=== PATIENT | female | born 1950 | race Caucasian/White ===

== ENCOUNTER 2016-12-06 10:45 | Inpatient (IN) | payer MEDICARE, OTHER ==
[2016-12-06] MEDS ORDERED: SODIUM CHLORIDE 0.9% 1,000 ML IV STA (11:33)
--- NOTE | 2016-12-06 11:55 | ED ---
General Adult HPI - General Chief complaint: Back Pain/Injury Stated complaint: back pain Time Seen by Provider: 12/06/16 11:14 Source: patient, RN notes reviewed Mode of arrival: ambulatory Limitations: no limitations - History of Present Illness Initial comments: Patient 66-year-old female who presents emergency room today with a chief complaint of increased lower back pain. States symptoms started approximately 3 PM. States she is very nauseated and began experiencing some back pain. Patient states symptoms seem to be improved. She is worried that it may be related to a cyst in the right kidney. She states she was due to have ultrasound today but did cancel when she decided come to the emergency room. States pain is improved at this time. Patient admits to some discomfort epigastric. Denies any other complaints currently. Patient denies any recent fever, chills, shortness of breath, chest pain, back pain, numbness or tingling , dysuria or hematuria, constipation or diarrhea, headaches or visual changes, or any other complaints. - Related Data Home Medications Medication Instructions Recorded Confirmed Digoxin [Lanoxin] 250 mcg PO DAILY 08/04/16 12/06/16 LORazepam [Ativan] 0.5 mg PO HS PRN 08/04/16 12/06/16 PARoxetine [Paxil] 10 mg PO QAM 08/04/16 12/06/16 PARoxetine [Paxil] 40 mg PO QAM 08/04/16 12/06/16 Allergies Allergy/AdvReac Type Severity Reaction Status Date / Time No Known Allergies Allergy Verified 12/06/16 11:20 Review of Systems ROS Statement: Those systems with pertinent positive or pertinent negative responses have been documented in the HPI. ROS Other: All systems not noted in ROS Statement are negative. Past Medical History Past Medical History: GERD/Reflux, Supraventricular Tachycardia (SVT) Additional Past Medical History / Comment(s): anxiety History of Any Multi-Drug Resistant Organisms: None Reported Additional Past Surgical History / Comment(s): colonoscopy, stomach polyp removed D&C Past Psychological History: Anxiety, Depression Smoking Status: Never smoker Past Alcohol Use History: None Reported Past Drug Use History: None Reported - Past Family History Father Family Medical History: Cancer Additional Family Medical History / Comment(s): from liver cancer General Exam - General Exam Comments Initial Comments: General: The patient is awake and alert, in no distress, and does not appear acutely ill. Eye: Pupils are equal, round and reactive to light, extra-ocular movements are intact. No nystagmus. There is normal conjunctiva bilaterally. No signs of icterus. Ears, nose, mouth and throat: There are moist mucous membranes and no oral lesions. Neck: The neck is supple, there is no tenderness or JVD. Cardiovascular: There is a regular rate and rhythm. No murmur, rub or gallop is appreciated. Respiratory: Lungs are clear to auscultation, respirations are non-labored, breath sounds are equal. No wheezes, stridor, rales, or rhonchi. Gastrointestinal: Normal appearance. Normal bowel sounds. Abdomen soft on palpation. Patient does have tenderness epigastric. No rebound tenderness. No guarding. No CVA tenderness. Musculoskeletal: Normal ROM, no tenderness. Strength 5/5. Sensation intact. Pulses equal bilaterally 2+. Neurological: A&O x 3. CN II-XII intact, There are no obvious motor or sensory deficits. Coordination appears grossly intact. Speech is normal. Skin: Skin is warm and dry and no rashes or lesions are noted. Psychiatric: Cooperative, appropriate mood & affect, normal judgment. Limitations: no limitations Course Vital Signs 12/06/16 10:48 Temperature 97.7 F Pulse Rate 90 Respiratory 16 Rate Blood Pressure 145/71 O2 Sat by Pulse 98 Oximetry Medical Decision Making - Medical Decision Making Patient's labs reviewed does show an elevated amylase lipase. Patient's ultrasound does show cholelithiasis. Does show hyperechoic region within the right kidney. Results were discussed with the patient. Case discussed with attending physician Dr. Trejo who did discuss case with admitting physician Dr. Morin. GI will be consulted. - Lab Data Result diagrams: 12/06/16 11:50 12/06/16 11:50 Lab Results 12/06/16 12/06/16 12/06/16 Range/Units 11:50 11:50 11:50 WBC 7.0 (3.8-10.6) k/uL RBC 5.15 (3.80-5.40) m/uL Hgb 15.5 (11.4-16.0) gm/dL Hct 46.0 (34.0-46.0) % MCV 89.4 (80.0-100.0) fL MCH 30.0 (25.0-35.0) pg MCHC 33.6 (31.0-37.0) g/dL RDW 12.8 (11.5-15.5) % Plt Count 231 (150-450) k/uL Neutrophils % 81 % Lymphocytes % 13 % Monocytes % 5 % Eosinophils % 0 % Basophils % 0 % Neutrophils # 5.6 (1.3-7.7) k/uL Lymphocytes # 0.9 L (1.0-4.8) k/uL Monocytes # 0.4 (0-1.0) k/uL Eosinophils # 0.0 (0-0.7) k/uL Basophils # 0.0 (0-0.2) k/uL PT (9.0-12.0) sec INR (<1.1) APTT (22.0-30.0) sec Sodium 142 (137-145) mmol/L Potassium 4.4 (3.5-5.1) mmol/L Chloride 102 (98-107) mmol/L Carbon Dioxide 28 (22-30) mmol/L Anion Gap 12 mmol/L BUN 11 (7-17) mg/dL Creatinine 0.76 (0.52-1.04) mg/dL Est GFR (MDRD) Af Amer >60 (>60 ml/min/1.73 sqM) Est GFR (MDRD) Non-Af >60 (>60 ml/min/1.73 sqM) Glucose 114 H (74-99) mg/dL Calcium 10.0 (8.4-10.2) mg/dL Total Bilirubin 2.6 H (0.2-1.3) mg/dL AST 260 H (14-36) U/L ALT 105 H (9-52) U/L Alkaline Phosphatase 74 (38-126) U/L Total Creatine Kinase 45 (30-135) U/L CK-MB (CK-2) 0.5 (0.0-2.4) ng/mL CK-MB (CK-2) Rel Index 1.1 Troponin I <0.012 (0.000-0.034) ng/mL Total Protein 7.7 (6.3-8.2) g/dL Albumin 4.6 (3.5-5.0) g/dL Amylase 702 H* (30-110) U/L Lipase 93002 H (23-300) U/L Urine Color Urine Appearance (Clear) Urine pH (5.0-8.0) Ur Specific [place] (1.001-1.035) Urine Protein (Negative) Urine Glucose (UA) (Negative) Urine Ketones (Negative) Urine Blood (Negative) Urine Nitrate (Negative) Urine Bilirubin (Negative) Urine Urobilinogen (<2.0) mg/dL Ur Leukocyte Esterase (Negative) 12/06/16 12/06/16 Range/Units 11:50 13:43 WBC (3.8-10.6) k/uL RBC (3.80-5.40) m/uL Hgb (11.4-16.0) gm/dL Hct (34.0-46.0) % MCV (80.0-100.0) fL MCH (25.0-35.0) pg MCHC (31.0-37.0) g/dL RDW (11.5-15.5) % Plt Count (150-450) k/uL Neutrophils % % Lymphocytes % % Monocytes % % Eosinophils % % Basophils % % Neutrophils # (1.3-7.7) k/uL Lymphocytes # (1.0-4.8) k/uL Monocytes # (0-1.0) k/uL Eosinophils # (0-0.7) k/uL Basophils # (0-0.2) k/uL PT 10.6 (9.0-12.0) sec INR 1.0 (<1.1) APTT 22.0 (22.0-30.0) sec Sodium (137-145) mmol/L Potassium (3.5-5.1) mmol/L Chloride (98-107) mmol/L Carbon Dioxide (22-30) mmol/L Anion Gap mmol/L BUN (7-17) mg/dL Creatinine (0.52-1.04) mg/dL Est GFR (MDRD) Af Amer (>60 ml/min/1.73 sqM) Est GFR (MDRD) Non-Af (>60 ml/min/1.73 sqM) Glucose (74-99) mg/dL Calcium (8.4-10.2) mg/dL Total Bilirubin (0.2-1.3) mg/dL AST (14-36) U/L ALT (9-52) U/L Alkaline Phosphatase (38-126) U/L Total Creatine Kinase (30-135) U/L CK-MB (CK-2) (0.0-2.4) ng/mL CK-MB (CK-2) Rel Index Troponin I (0.000-0.034) ng/mL Total Protein (6.3-8.2) g/dL Albumin (3.5-5.0) g/dL Amylase (30-110) U/L Lipase (23-300) U/L Urine Color Yellow Urine Appearance Clear (Clear) Urine pH 7.5 (5.0-8.0) Ur Specific [place] 1.015 (1.001-1.035) Urine Protein Trace H (Negative) Urine Glucose (UA) Negative (Negative) Urine Ketones Negative (Negative) Urine Blood Negative (Negative) Urine Nitrate Negative (Negative) Urine Bilirubin 1+ H (Negative) Urine Urobilinogen 4.0 (<2.0) mg/dL Ur Leukocyte Esterase Negative (Negative) Disposition Clinical Impression: Acute pancreatitis Disposition: ADMITTED IP TO THIS HOSP Condition: Good Time of Disposition: 14:08
[2016-12-06 12:08] LABS: Basophils % (A) 0 %; CH 31.1; Eosinophils % (A) 0 %; HDW 2.75; HGB 15.5 gm/dL (11.4-16.0); Luc # (Auto) 0.07; Luc % (Auto) 1; Lymphocytes # (A) 0.9 k/uL (1.0-4.8); Lymphocytes % (A) 13 %; MCHC 33.6 g/dL (31.0-37.0); MCV 89.4 fL (80.0-100.0); Mean Platelet Volume 6.5; Monocytes # (A) 0.4 k/uL (0-1.0); Monocytes % (A) 5 %; Neutrophils # (A) 5.6 k/uL (1.3-7.7); Neutrophils % (A) 81 %; RBC 5.15 m/uL (3.80-5.40); RDW 12.8 % (11.5-15.5); WBC (Perox) 6.95
[2016-12-06 12:18] LABS: ALT 105 U/L (9-52); AST 260 U/L (14-36); Alkaline Phosphatase 74 U/L (38-126); Anion Gap 12 mmol/L; Blood Urea Nitrogen 11 mg/dL (7-17); Carbon Dioxide 28 mmol/L (22-30); Chloride 102 mmol/L (98-107); Glucose 114 mg/dL (74-99); Non-African American GFR(MDRD) >60 (>60 ml/min/1.73 sqM); Potassium 4.4 mmol/L (3.5-5.1); Sodium 142 mmol/L (137-145); Total Bilirubin 2.6 mg/dL (0.2-1.3); Total Protein 7.7 g/dL (6.3-8.2)
[2016-12-06 12:31] LABS: Amylase 702 U/L (30-110)
[2016-12-06 12:36] LABS: Creatine Kinase 45 U/L (30-135)
[2016-12-06 12:42] LABS: Prothrombin Time 10.6 sec (9.0-12.0)
[2016-12-06 12:48] LABS: Creatine Kinase MB 0.5 ng/mL (0.0-2.4); Troponin I <0.012 ng/mL (0.000-0.034)
--- NOTE | 2016-12-06 13:47 | US ---
EXAMINATION TYPE: US abd limited kidneys/bladder DATE OF EXAM: 12/06/2016 1:03 PM COMPARISON: CT abdomen and pelvis 08/10/2016 CLINICAL HISTORY: Pain. Back pain, nausea EXAM MEASUREMENTS: Liver Length: 14.9 cm Gallbladder Wall: 0.7 cm CBD: 0.6 cm Right Kidney: 10.8 x 5.2 x 4.3 cm Left Kidney: 11.5 x 4.5 x 4.8 cm TECHNOLOGIST IMPRESSION: Pancreas: duct = 0.3cm, visualized portions appear heterogeneous, tail obscured by overlying bowel c ontent Liver: heterogeneous Gallbladder: multiple gallstones, thickened edematous wall CBD: upper limits of normal Right Kidney: hyperechoic area mid = 0.7 x 0.8 x 0.7cm . This may have been faintly visualized on the prior CT 2015. A repeat CT study without and with contrast may be useful for better delineation. Left Kidney: no evidence of hydronephrosis or mass Bladder: appears wnl Bilateral Jets Seen yes IMPRESSION: 1. Cholelithiasis. 2. Hyperechoic region within the right kidney. Consider angiomyolipoma. CT abdomen without and then w ith contrast recommended for additional evaluation.
[2016-12-06 13:51] LABS: Appearance,Urine Clear (Clear); Bilirubin,Urine 1+ (Negative); Glucose,Urine (UA) Negative (Negative); Ketones,Urine Negative (Negative); Leukocyte Esterase,Urine Negative (Negative); Nitrite,Urine Negative (Negative); PH, Urine 7.5 (5.0-8.0); Protein,Urine Trace (Negative); Specific Gravity,Urine 1.015 (1.001-1.035); UA Billing (MACRO vs. MICRO) CHEM
[2016-12-06] MEDS ORDERED: HYDROmorphone 1 MG/ML 1 ML SYRINGE IV PRN (14:08)
[2016-12-06] MEDS ORDERED: NALOXONE 0.4 MG/ML 1 ML VIAL IV PRN (14:08)
[2016-12-06] MEDS ORDERED: ONDANSETRON 4 MG/2 ML VIAL IVP PRN (14:08)
[2016-12-06] MEDS: LORazepam 2 MG/ML SYRINGE IV PRN (16:30)
[2016-12-06 22:12] VITALS: PULSE 57; RESP 16
[2016-12-07] MEDS: LORazepam 2 MG/ML SYRINGE IV PRN (04:42)
[2016-12-07 07:50] VITALS: BP 108/48; TEMP 98.4
[2016-12-07 08:32] LABS: Basophils % (A) 0 %; CH 30.6; CHCM 33.3; Eosinophils # (A) 0.1 k/uL (0-0.7); Eosinophils % (A) 2 %; HDW 2.66; HGB 13.2 gm/dL (11.4-16.0); Luc % (Auto) 2; Lymphocytes # (A) 1.7 k/uL (1.0-4.8); Lymphocytes % (A) 36 %; MCH 29.7 pg (25.0-35.0); MCHC 32.1 g/dL (31.0-37.0); MCV 92.5 fL (80.0-100.0); Monocytes # (A) 0.3 k/uL (0-1.0); Monocytes % (A) 6 %; Neutrophils # (A) 2.6 k/uL (1.3-7.7); Neutrophils % (A) 54 %; RBC 4.43 m/uL (3.80-5.40); RDW 12.8 % (11.5-15.5); WBC 4.8 k/uL (3.8-10.6); WBC (Perox) 4.88
[2016-12-07 08:47] LABS: ALT 198 U/L (9-52); AST 200 U/L (14-36); Alkaline Phosphatase 84 U/L (38-126); Amylase 103 U/L (30-110); Anion Gap 9 mmol/L; Blood Urea Nitrogen 9 mg/dL (7-17); Carbon Dioxide 23 mmol/L (22-30); Chloride 110 mmol/L (98-107); Glucose 90 mg/dL (74-99); Non-African American GFR(MDRD) >60 (>60 ml/min/1.73 sqM); Sodium 142 mmol/L (137-145); Total Bilirubin 1.4 mg/dL (0.2-1.3); Total Protein 6.1 g/dL (6.3-8.2)
[2016-12-07] MEDS ORDERED: DIGOXIN 250 MCG TAB PO SCH ×2 (09:00→12:00)
[2016-12-07] MEDS ORDERED: PARoxetine 10 MG TAB PO SCH ×3 (09:00→12:00)
[2016-12-07] MEDS ORDERED: PARoxetine 20 MG TAB PO SCH (09:00)
--- NOTE | 2016-12-07 09:43 | P.CONS ---
History of Present Illness - Reason for Consult Consult date: 12/07/16 Pancreatitis Requesting physician: Silvano Morin - History of Present Illness 66-year-old female patient Dr. Chávez with a past medical history cholelithiasis, SVT, anxiety, depression, GERD, and nephrolithiasis. Presents with acute midepigastric right upper quadrant abdominal pain that started yesterday morning. She has similar type of pain back in July and was hospitalized at that time with symptomatically gallstones. No evidence of pancreatitis at that time. Additionally on this admission pancreatic enzymes were elevated consistent with gallstone pancreatitis. Admission white count 7. Hemoglobin 15.5. Total bilirubin 2.6. AST 260. ALT 105. Alkaline phosphate 74. Lipase 13,474. Amylase 702. Today total bilirubin has improved to 1.4. AST 200. ALT 198. Alkaline phosphatase 84. Lipase 354. Amylase 103. She has been afebrile. No changes in the color of her stool urine was slightly darker in color. Pain is improved and presently resting comfortably. No history of liver disorders or alcoholism. No changes in medications. Review of Systems Constitutional: Denies fever, chills, sweats, weight gain, or loss. HEENT: Negative for migraines, blurred vision or loss, earaches, drainage, tinnitus, oral mucosal lesions, dysphagia, or odynophagia. CARDIAC: SVT. RESPIRATORY: Negative for shortness of breath, hemoptysis, cough, or sputum production. GI: See HPI for pertinent findings. : Negative for hematuria, urgency, frequency, polyuria, or dysuria. GYNc: Denies possibility of . Negative vaginal discharge. MUSCULOSKELETAL: Negative for muscle aches, swelling, arthritis, and arthralgias. NEUROLOGIC: Negative for stroke or TIA. ENDOCRINE: Negative for thyroid problems. Nephrology: Nephrolithiasis. SKIN: Negative for rash or itching. PSYCHIATRIC: depression and anxiety All systems: negative (See HPI) Past Medical History Past Medical History: GERD/Reflux, Supraventricular Tachycardia (SVT) Additional Past Medical History / Comment(s): anxiety, svt,gallstones, past gerd , small hiatal hernia, "told 30 years ago i had a fatty liver", kidney stone 25 years ago,, psoriases,, broken sleep at night stated gets up 5-8 times per night to urinate", "lt ball of foot and toes numb and at times gets discolored" History of Any Multi-Drug Resistant Organisms: None Reported Additional Past Surgical History / Comment(s): colonoscopy,egd/ stomach polyp removed was benign, D&C Past Anesthesia/Blood Transfusion Reactions: No Reported Reaction Past Psychological History: Anxiety, Depression Smoking Status: Never smoker Past Alcohol Use History: None Reported Past Drug Use History: None Reported - Past Family History Father Family Medical History: Cancer Additional Family Medical History / Comment(s): from liver cancer Medications and Allergies Home Medications Medication Instructions Recorded Confirmed Type Digoxin [Lanoxin] 250 mcg PO DAILY 08/04/16 12/06/16 History LORazepam [Ativan] 0.5 mg PO HS PRN 08/04/16 12/06/16 History PARoxetine [Paxil] 10 mg PO QAM 08/04/16 12/06/16 History PARoxetine [Paxil] 40 mg PO QAM 08/04/16 12/06/16 History Allergies Allergy/AdvReac Type Severity Reaction Status Date / Time No Known Allergies Allergy Verified 12/06/16 11:20 Physical Exam Vitals: Vital Signs Temp Pulse Pulse Resp BP BP Pulse Ox 12/07/16 08:00 16 12/07/16 07:00 98.4 F 57 L 16 108/48 97 12/06/16 20:25 98.7 F 57 L 16 111/54 96 12/06/16 16:36 98.3 F 68 18 139/64 99 12/06/16 16:00 68 18 12/06/16 14:48 98.2 F 71 16 126/58 98 Intake and Output 12/06/16 12/07/16 12/07/16 22:59 06:59 14:59 Intake Total 350 800 Balance 350 800 Intake: Intake, IV Titration 350 800 Amount Sodium Chloride 0.9% 1, 350 800 000 ml @ 100 mls/hr IV . Q10H STA Rx#:[id number] Other: Voiding Method Toilet Toilet # Voids 1 Weight 74.389 kg General appearance: The patient is alert, oriented, in no acute distress. HET: Head is normocephalic and atraumatic. Pupils are equal and reactive. Oropharynx is clear without lesions. Neck: Supple without lymphadenopathy. Trachea midline. Heart: S1 S2. Regular rate and rhythm. Lungs: No crackles or wheezes are heard. Abdomen: Soft, nontender, nondistended with bowel sounds. No peritoneal signs. No palpable organomegaly or masses. Extremities: Normal skin color and turgor. No cyanosis, rash, ulceration, clubbing, or edema. Radial and pedal pulses are 2/4 bilaterally. Neurological: No focal deficits. Strength and sensation are grossly intact. Results CBC & Chem 7: 12/07/16 07:20 12/07/16 07:20 Labs: Abnormal Lab Results - Last 24 Hours (Table) 12/07/16 Range/Units 07:20 Chloride 110 H (98-107) mmol/L Total Bilirubin 1.4 H (0.2-1.3) mg/dL AST 200 H (14-36) U/L ALT 198 H (9-52) U/L Total Protein 6.1 L (6.3-8.2) g/dL Lipase 354 H (23-300) U/L US - abdomen: report reviewed (Reviewed by Dr. Chamorro) Assessment and Plan (1) Acute gallstone pancreatitis Narrative/Plan: 66-year-old female presents with acute midepigastric right upper quadrant abdominal pain with cholelithiasis suspect passage of choledocholithiasis. Elevated pancreatic and liver enzymes improving consistent with gallstone pancreatitis. Status: Acute Plan: 1. ERCP not recommended at this time considering liver chemistries are improving. Patient most likely passed gallstone. 2. Gen. surgical consultation. 3. Continue supportive measures. 4. Will follow with you. Thank you for this kind referral and the opportunity to participate in the care of your patient. This consultation was discussed with Dr. Chamorro. The impression and plan of care have been directed as dictated.
--- NOTE | 2016-12-07 15:58 | P.CON ---
Consult Note - . Consult date: 12/07/16 Assessment/Plan:: Thank you very much for asking us to see Ms. Corral.. Admitted late last night with sudden onset of severe mid epigastric abdominal pain. She presented to the emergency room. Did have some nausea. Workup revealed evidence of gallstone pancreatitis with elevated lipase to over 10,000 and amylase and bilirubin as well. For further management. Had a similar episode in July of 2016. She is known to have had gallstones. AGAIN DID REVEAL MULTIPLE GALLSTONES. HER LIVER ENZYMES AND AMYLASE AND LIPASE HAVE RAPIDLY DIFFICULT DECLINE INDICATING PROBABLY A PASSED STONE. MISSION SHE FEELS GREAT. HAS ABSOLUTELY NO PAIN NOW. NO NAUSEA OR VOMITING. SHE IS TOLERATING BY MOUTH FLUIDS. PAST HISTORY POSITIVE FOR THE ARRHYTHMIA. THE SVT.medications as listed. T ANXIETY DISORDER COLON POLYP BY COLONOSCOPY SOME REFLUX DISEASE. No previous abdominal surgery. Social history patient is . Denies tobacco or ethanol usage. Systems review as above. No chest pain or shortness of breath. No EXHIBIT CARPENTER problems. No change in her bowels or blood in the stool. No urinary symptoms although has a past history of kidney stones. On examination patient is awake alert in no distress resting comfortably. Anxiously wants to go home. Weighs about 74.4 kg BMI 25.7. Vitals are normal. She is anicteric. Hydration is good. Head and neck otherwise normal. Heart regular rhythm. Lungs are clear. Abdomen is quite soft with the no tenderness no pain no guarding or rebound or mass or organomegaly noted. No hernias. Extremities normal with full motion. Does have good pedal pulses. EXHIBIT CARPENTER grossly intact. Ultrasound and blood work as above. Donny impression resolving gallstone pancreatitis. Recommendation progressively advance her diet. Would recommend a laparoscopic cholecystectomy possible open on an elective basis. Patient understands and agrees.
--- NOTE | 2016-12-07 17:34 | HP ---
DATE OF ADMISSION: 12/06/2016 PRESENTING COMPLAINT: Abdominal pain. HISTORY OF PRESENTING COMPLAINT: This is a 66-year-old patient who was in the bathroom earlier and I could not see the patient. I came back to see the patient. Patient follows with Dr. Chávez. Chronic stable medical conditions include GERD, kidney stones, anxiety, depression. Patient presented with 2 days of increasing nausea, abdominal epigastric pain with back pain. Denies any fever. Bowel movements are regular. No urinary symptoms. REVIEW OF SYSTEMS: CONSTITUTIONAL: Tired. HEENT: None. RESPIRATORY: None. CARDIOVASCULAR: None. GASTROINTESTINAL: As above. GENITOURINARY: None. MUSCULOSKELETAL: None. DERMATOLOGIC: None. HEMATOLOGIC: None. LYMPHATICS: None. PSYCHIATRY: Anxious. NEUROLOGICAL: None. PAST MEDICAL HISTORY: Gastroesophageal reflux disease, supraventricular tachycardia, kidney stones, anxiety, depression. PAST SURGICAL HISTORY: Colonoscopy, EGD, stomach polyp removed. SOCIAL HISTORY: History of anxiety, depression. . No smoking or alcohol. FAMILY HISTORY: Liver cancer. HOME MEDICATIONS: 1. Paxil 50 mg a day. 2. Ativan 0.5 mg q.h.s. p.r.n. 3. Digoxin 250 mcg a day. ALLERGIES: None. On examination vital signs on presentation: Temperature 97.7, pulse 90, respiration 16, blood pressure 140/71, pulse ox 98% on room air. GENERAL APPEARANCE: Average built, sitting up, not in distress. EYES: Pupils equal. Conjunctivae normal. HEENT: Oral cavity normal. NECK: JVD not raised. Mass not palpable. RESPIRATORY: Effort normal. Lungs are clear. CARDIOVASCULAR: First and second sounds normal. No edema. ABDOMEN: Soft, nontender. Liver and spleen not palpable. LYMPHATIC: No lymph nodes palpable in the neck or axillae. PSYCHIATRY: Alert and oriented x3. Mood and effect, anxious appearing. NEUROLOGICAL: Pupils are equal. Cranial nerves grossly intact. Power and sensation grossly intact. INVESTIGATIONS: White count 7, hemoglobin 15.5. Potassium 4.4. BUN and creatinine are normal. AST 260, ALT 105, bilirubin 2.6, amylase 702, lipase 13,424. Abdominal ultrasound shows multiple gallstones. ASSESSMENT: 1. Acute gallstone pancreatitis. 2. Multiple gallstones. 3. Gastroesophageal reflux disease. 4. Anxiety, not otherwise specified. 5. Kidney stones, asymptomatic. PLAN: Consultation was done to GI and General Surgery. The patient began on clear liquids. Abdominal pain is getting better. Will see how she does. Patient is very keen to go home. Patient will definitely need surgery down the road.
--- NOTE | 2016-12-08 11:39 | DS ---
DATE OF ADMISSION: 12/06/2016 DATE OF DISCHARGE: 12/07/2016 FINAL DIAGNOSES: 1. Acute gallstone pancreatitis, present on admission. 2. Multiple gallstones. 3. Gastroesophageal reflux disease. 4. Anxiety, not otherwise specified. 5. Kidney stones, asymptomatic. HOSPITAL COURSE: This patient presented with abdominal pain and acute pancreatitis from gallstones. The patient's symptoms greatly improved by the time of discharge. ABDOMEN: Soft, nontender. Tolerating a diet. Pancreatic numbers have come down. Patient will have surgery as an outpatient. CONSULTATION: Dr. April Chamorro form GI; Dr. Botello from general surgery. DISCHARGE MEDICATIONS: 1. Digoxin 250 mcg p.o. daily. 2. Ativan 0.5 p.o. q.h.s. p.r.n. 3. Paxil 50 mg a day. Follow up with Dr. Chávez in one week. Follow up with Dr. Botello in one week. DIET: Soft, bland.
== END 2016-12-07 16:20 | disposition home or self-care (01) | DRG 439 ==
LOC: EC 10:45 → 5MS5E 14:16
PROVIDERS: ADMIT Hospitalist; ATTEND Hospitalist
DX: K85.10 Biliary acute pancreatitis without necrosis or infection (principal); I47.1 Supraventricular tachycardia; F32.9 Major depressive disorder, single episode, unspecified; F41.9 Anxiety disorder, unspecified; K21.9 Gastro-esophageal reflux disease without esophagitis; K44.9 Diaphragmatic hernia without obstruction or gangrene; R74.8 Abnormal levels of other serum enzymes; R20.0 Anesthesia of skin; K80.20 Calculus of gallbladder without cholecystitis without obstruction; R11.0 Nausea; R93.421 Abnormal radiologic findings on diagnostic imaging of right kidney; G47.9 Sleep disorder, unspecified; L40.9 Psoriasis, unspecified; Z87.19 Personal history of other diseases of the digestive system; Z87.442 Personal history of urinary calculi; Z79.899 Other long term (current) drug therapy; Z80.0 Family history of malignant neoplasm of digestive organs; Z86.010 Personal history of colon polyps
CPT/HCPCS: 36415; 76705; 76770; 80053; 81003; 82150; 82550; 82553; 83690; 84484; 85025; 85610; 85730; 93005; 96361; 96374; 99285

== ENCOUNTER → 2016-12-26 | Outpatient (CLI) | payer MEDICARE, OTHER ==
[2016-12-26 14:55] LABS: ALT 29 U/L (9-52); AST 25 U/L (14-36); Alkaline Phosphatase 75 U/L (38-126); Anion Gap 12 mmol/L; Blood Urea Nitrogen 9 mg/dL (7-17); Calcium 10.3 mg/dL (8.4-10.2); Carbon Dioxide 28 mmol/L (22-30); Chloride 100 mmol/L (98-107); Glucose 104 mg/dL (74-99); Non-African American GFR(MDRD) 58 (>60 ml/min/1.73 sqM); Potassium 4.2 mmol/L (3.5-5.1); Sodium 140 mmol/L (137-145); Total Protein 7.7 g/dL (6.3-8.2)
[2016-12-26 15:04] LABS: Basophils # (A) 0.1 k/uL (0-0.2); Basophils % (A) 1 %; CHCM 34.4; Eosinophils # (A) 0.1 k/uL (0-0.7); Eosinophils % (A) 1 %; HCT 43.6 % (34.0-46.0); HDW 2.83; Luc # (Auto) 0.14; Luc % (Auto) 2; Lymphocytes # (A) 1.9 k/uL (1.0-4.8); Lymphocytes % (A) 32 %; MCH 31.2 pg (25.0-35.0); MCHC 34.4 g/dL (31.0-37.0); MCV 90.7 fL (80.0-100.0); Mean Platelet Volume 8.5; Monocytes # (A) 0.4 k/uL (0-1.0); Monocytes % (A) 7 %; Neutrophils # (A) 3.4 k/uL (1.3-7.7); Neutrophils % (A) 57 %; RDW 13.1 % (11.5-15.5); WBC 5.9 k/uL (3.8-10.6); WBC (Perox) 6.26
[2016-12-26 15:19] LABS: INR 1.1 (<1.1); Partial Thromboplastin Time 23.8 sec (22.0-30.0); Prothrombin Time 11.4 sec (9.0-12.0)
== END ==
LOC: LABWHC1 14:28
PROVIDERS: ATTEND Surgery
DX: K81.0 Acute cholecystitis (principal)
CPT/HCPCS: 36415; 80053; 83690; 85025; 85610; 85730

== ENCOUNTER 2017-01-02 08:29 | Day surgery (SDC) | payer MEDICARE, OTHER ==
--- NOTE | 2016-12-31 08:36 | HP ---
DATE OF ADMISSION: CHIEF COMPLAINT: Gallstone pancreatitis. HISTORY OF PRESENT ILLNESS: Patient is a 66-year-old female who has had numerous recent episodes of choledocholithiasis with the last episode resulting in gallstone pancreatitis. The patient is extremely anxious and during her last few admissions, it was suggested that she have her cholecystectomy done during that hospitalization; however, the patient could not get the nerve up to do it. Currently, she feels well. No current pain. No change in the color of her skin, urine or stool recently. Repeat lab work done on December 26 showed normal liver enzymes, normal coags. Her first episode was back in 2014. She had an ultrasound showing multiple gallstones with a thickened gallbladder wall. PAST MEDICAL HISTORY: Anxiety, SVT. Past surgical history is EGD and colonoscopy. MEDICATIONS: 1. Paxil. 2. Ativan. 3. Digoxin. ALLERGIES: None. PHYSICAL EXAM: GENERAL: Well-developed, well-nourished female in no distress. HEENT is normocephalic. Sclerae is nonicteric. CHEST: No deformities. ABDOMEN: Soft, nontender, nondistended. IMPRESSION: A 66-year-old female with gallstone pancreatitis. PLAN: Will proceed with laparoscopic cholecystectomy on 01/02. The risks of bleeding, infection, biloma formation, common bile duct injury, retained CBD stone, trocar-related injury and conversion to an open procedure. The patient understands and wishes to proceed.
[2017-01-01 12:21] VITALS: BMI 23.9
[~2017-01-02 08:29] MED LIST: DEXAMETHASONE SOD PHOSPHATE 10 MG/ML 1 ML VIAL IV ONE; HEPARIN SODIUM,PORCINE 5,000 UNIT/ML 1 ML VIAL SQ ONE; HYDROmorphone 1 MG/ML 1 ML SYRINGE IVP PRN; LACTATED RINGERS 1,000 ML IV SCH; LIDOCAINE 1% 20 ML VIAL (10MG/ML) FOR IV START INTRADERMA PRN; ONDANSETRON 4 MG/2 ML VIAL IVP ONE; ceFAZolin 2 GM in SODIUM CHLORIDE 0.9% 100 ML IVPB ONE
[2017-01-02] MEDS ORDERED: LIDOCAINE 1% 20 ML VIAL (10MG/ML) FOR IV START INTRADERMA ONE (09:46)
[2017-01-02] MEDS ORDERED: MIDAZOLAM 2 MG/2 ML VIAL IV ONE (09:53)
[2017-01-02] MEDS ORDERED: PROPOFOL 10 MG/ML 20 ML VIAL IV ONE (10:16)
[2017-01-02] MEDS ORDERED: SUCCINYLCHOLINE CHLORIDE 100 MG/5 ML SYR IV ONE (10:16)
[2017-01-02] MEDS ORDERED: GLYCOPYRROLATE 0.2 MG/ML 2 ML VIAL ONE (10:16)
[2017-01-02] MEDS ORDERED: ROCURONIUM BROMIDE 10 MG/ML 10 ML VIAL IV ONE (10:16)
[2017-01-02] MEDS ORDERED: NEOSTIGMINE 1 MG/ML 10 ML VIAL ONE (10:16)
[2017-01-02] MEDS ORDERED: fentaNYL (PF) 50 MCG/ML 2 ML AMP ONE (10:16)
[2017-01-02] MEDS ORDERED: MIDAZOLAM 2 MG/2 ML VIAL ONE (10:16)
[2017-01-02] MEDS ORDERED: LIDOCAINE 1% INJ 10MG/ML (20 ML MDV) ONE (10:16)
[2017-01-02] MEDS ORDERED: BUPIVACAIN-EPI 0.25%-1:200,000 30 ML VIAL SQ ONE (10:37)
[2017-01-02] MEDS ORDERED: traMADol 50 MG TAB PO PRN (11:13)
[2017-01-02] MEDS ORDERED: NALOXONE 0.4 MG/ML 1 ML VIAL IV PRN (11:13)
--- NOTE | 2017-01-02 11:14 | P.PCN ---
Date of Procedure: 01/02/17 Procedure(s) Performed: PREOPERATIVE DIAGNOSIS: Chronic cholecystitis, gallstone pancreatitis POSTOPERATIVE DIAGNOSIS: Same PROCEDURE: Laparoscopic cholecystectomy SURGEON: Alicia EBL: Minimal see anesthesia record ANESTHESIA: Gen. COMPLICATIONS: None OPERATIVE PROCEDURE: The patient was brought and placed on the operating room table in the supine position. The patient was placed under general anesthesia at that time. The abdomen was prepped and draped in the usual sterile fashion. A small vertical infraumbilical incision was made. The fascia was grasped with the Avery forceps. The fascia was retracted anteriorly. The Veress needle was advanced into the peritoneal cavity. The saline drop test was normal. Insufflation took place up to 15 mmHg. A 5 mm optical trocar was advanced and the peritoneal cavity. 2 additional 5 mm trochars were placed in the right upper quadrant under direct visualization. A 10 mm trocar was advanced into the epigastric incision site. The gallbladder was retracted superiorly and laterally. The peritoneum overlying the infundibulum was bluntly dissected. The patient's cystic duct was visualized. The junction between the cystic duct common and hepatic duct was identified. The cystic duct was then divided after placement of 3 10 mm clips on the patient's side and one on the specimen side. The cystic artery was identified and clipped as well. A small vessel was seen along the gallbladder fossa and clipped as well. The gallbladder was then removed from the liver bed using electrocautery. The gallbladder was then removed from the epigastric trocar site with an Endo Catch bag. The gallbladder fossa was irrigated with saline. There was no evidence of any bleeding or biliary drainage seen. The trochars were then removed. The fascia at the 10 millimeter site was closed using a figure-of- eight 0 Vicryl stitch. The skin at all 4 sites was closed using a 4-0 Monocryl stitch. At the end of this procedure the sponge and needle counts were correct. DISPOSITION: Stable to the recovery room
[2017-01-02 11:33] VITALS: TEMP 97.2
[2017-01-02] MEDS ORDERED: LACTATED RINGERS 1,000 ML IV ONE (11:44)
[2017-01-02 13:14] VITALS: BP 101/60; PULSE 66; RESP 18
== END 2017-01-02 13:46 | disposition home or self-care (01) ==
LOC: OR 08:29
PROVIDERS: ATTEND Surgery
DX: K80.10 Calculus of gallbladder with chronic cholecystitis without obstruction (principal); K85.10 Biliary acute pancreatitis without necrosis or infection; F41.9 Anxiety disorder, unspecified; F32.9 Major depressive disorder, single episode, unspecified; I47.1 Supraventricular tachycardia; Z79.899 Other long term (current) drug therapy
CPT/HCPCS: 88304; 47562; J2250; J1100; J2710; J0690; J2405; J2001; J3010; J0330; J2704

== ENCOUNTER → 2017-05-03 | Outpatient (CLI) | payer MEDICARE, OTHER ==
--- NOTE | 2017-05-03 15:13 | US ---
EXAMINATION TYPE: US abdomen comp/pelvis limited DATE OF EXAM: 05/03/2017 COMPARISON: 12/06/2016 CLINICAL HISTORY: 67-year-old female N28.1 CYST OF KIDNEYS. Follow up renal lesion. Microscopic hemat uria. GB removed December 2016. TECHNIQUE: Multiple sonographic images of the abdomen and bladder are obtained. FINDINGS: Liver Length: 13.6 cm CBD: 0.5 cm CHD: 0.4 cm Spleen: 10.8 cm Right Kidney: 10.2 x 4.7 x 5.1 cm Left Kidney: 11.2 x 4.5 x 5.1 cm Pancreas: Limited visualization of the pancreatic head and tail secondary to shadowing from bowel gas . Visualized body slightly heterogeneous but probably within normal limits. Liver: Slight increased echogenicity. No focal lesion seen. Gallbladder: Surgically absent CBD: wnl CHD: wnl Spleen: wnl Right Kidney: echogenic nonvascular lesion in mid cortex = 0.9 x 0.7 x 0.6 cm. Previously measured 8 x 7 x 7 mm. No hydronephrosis. Left Kidney: Dromedary hump seen. No hydronephrosis. Upper IVC: wnl Abd Aorta: No AAA visualized Bladder: Borderline wall thickening of the bladder at 4 mm. Bilateral Jets Seen IMPRESSION: 1. Possible mild hepatic steatosis. 2. Status post cholecystectomy in the interval. 3. A 9 x 7 mm echogenic lesion mid pole right kidney versus 8 x 7 mm on 12/06/2016. Additional 6-7 mon th follow-up recommended. AML is possible. Continued stability would make more aggressive etiologies unlikely. 4. Slight bladder wall thickening. Correlate to exclude cystitis.
--- NOTE | 2017-05-03 15:15 | US ---
EXAMINATION TYPE: US pelvis complete transvag DATE OF EXAM: 05/03/2017 COMPARISON: None. CLINICAL HISTORY: 67-year-old female N28.1 CYST OF KIDNEY. Microscopic hematuria TECHNIQUE: Transvaginal (TV) and Transabdominal (TA) FINDINGS: Date of LMP: Menopause, Uterus: Anteverted measuring 5.8 x 3.8 x 1.9 cm. Cervical nabothian cyst is noted. The cervix appear s somewhat prominent in comparison to the atrophic uterus. Endometrial Stripe: 1 mm, very then appropriate for a postmenopausal female. Neither ovary could be visualized. Bilateral Adnexa: Peristalsing bowel Posterior cul-de-sac: no free fluid IMPRESSION: 1. Somewhat prominent appearance to the cervix in comparison to the atrophic uterus. No discrete mass is seen. Consider physical exam and/or Pap smear as a precautionary measure. 2. Neither ovary could be visualized.
== END | disposition home or self-care (01) ==
LOC: RADUSWWP 13:27
PROVIDERS: ATTEND Family Medicine
DX: N28.89 Other specified disorders of kidney and ureter (principal); N32.89 Other specified disorders of bladder; Z90.49 Acquired absence of other specified parts of digestive tract
CPT/HCPCS: 76700; 76830; 76856; 76857

== ENCOUNTER 2017-05-22 02:13 | Inpatient (IN) | payer MEDICARE, OTHER ==
[2017-05-22] MEDS ORDERED: ASPIRIN 81 MG CHEW PO STA (02:29)
[2017-05-22] MEDS ORDERED: ADENOSINE 3 MG/ML 2 ML VIAL IVP STA (02:29)
[2017-05-22] MEDS ORDERED: SODIUM CHLORIDE 0.9% 1,000 ML IV STA (02:29)
[2017-05-22 02:47] LABS: Basophils # (A) 0.1 k/uL (0-0.2); Basophils % (A) 1 %; CH 31.9; CHCM 34.8; Eosinophils # (A) 0.1 k/uL (0-0.7); Eosinophils % (A) 1 %; HCT 48.5 % (34.0-46.0); HDW 2.65; Luc # (Auto) 0.19; Luc % (Auto) 2; Lymphocytes # (A) 3.8 k/uL (1.0-4.8); Lymphocytes % (A) 32 %; MCH 30.5 pg (25.0-35.0); MCHC 33.1 g/dL (31.0-37.0); MCV 92.2 fL (80.0-100.0); Mean Platelet Volume 7.9; Monocytes # (A) 0.5 k/uL (0-1.0); Monocytes % (A) 4 %; Neutrophils # (A) 7.1 k/uL (1.3-7.7); Neutrophils % (A) 61 %; RBC 5.26 m/uL (3.80-5.40); RDW 14.3 % (11.5-15.5); WBC 11.6 k/uL (3.8-10.6); WBC (Perox) 11.67
[2017-05-22 02:56] LABS: ALT 34 U/L (9-52); AST 27 U/L (14-36); Alkaline Phosphatase 69 U/L (38-126); Anion Gap 16 mmol/L; Blood Urea Nitrogen 16 mg/dL (7-17); Calcium 9.9 mg/dL (8.4-10.2); Carbon Dioxide 22 mmol/L (22-30); Chloride 101 mmol/L (98-107); Glucose 156 mg/dL (74-99); Magnesium 2.2 mg/dL (1.6-2.3); Non-African American GFR(MDRD) >60 (>60 ml/min/1.73 sqM); Potassium 4.3 mmol/L (3.5-5.1); Sodium 139 mmol/L (137-145); Total Bilirubin 0.7 mg/dL (0.2-1.3); Total Protein 7.3 g/dL (6.3-8.2)
[2017-05-22 02:57] LABS: INR 1.1 (<1.2); Prothrombin Time 11.2 sec (9.0-12.0)
[2017-05-22 03:23] LABS: Creatine Kinase MB 1.4 ng/mL (0.0-2.4)
[2017-05-22 03:33] LABS: Troponin I 0.064 ng/mL (0.000-0.034)
--- NOTE | 2017-05-22 03:35 | XR ---
EXAM: XR Chest, 1 View CLINICAL HISTORY: dysrhythmia TECHNIQUE: Frontal view of the chest. COMPARISON: August 04, 2016. FINDINGS: Lungs: Unremarkable. No consolidation. Pleural space: Unremarkable. No pneumothorax. Heart: Unremarkable. No cardiomegaly. Mediastinum: Unremarkable. Bones/joints: Unremarkable. IMPRESSION: No acute cardiopulmonary process.
--- NOTE | 2017-05-22 03:39 | ED ---
Arrhythmia/Palpitations HPI - General Chief Complaint: Arrhythmia/Palpitations Stated Complaint: palpitations Time Seen by Provider: 05/22/17 02:29 Source: patient Mode of arrival: ambulatory Limitations: no limitations - History of Present Illness Initial Comments: This patient is a 67-year-old woman with history of previous SVT who presents with complaint that it feels like her heart is racing. She states that she has been having episodes of this going back about 3 days now. The symptoms were somewhat intermittent. She states that tonight feeling was prolonged in the heart rate was higher than it had been over the past couple days. She is denying chest pain, dyspnea, diaphoresis, vomiting. MD Complaint: "heart racing" -: days(s) Context: occurred during rest Arrhythmia History: SVT - Related Data Home Medications Medication Instructions Recorded Confirmed Digoxin [Lanoxin] 250 mcg PO 1230 08/04/16 01/02/17 LORazepam [Ativan] 0.5 mg PO HS 08/04/16 01/02/17 PARoxetine [Paxil] 10 mg PO QAM 08/04/16 01/02/17 PARoxetine [Paxil] 40 mg PO 1200 08/04/16 01/02/17 Previous Rx's Medication Instructions Recorded traMADol HCl [Ultram] 50 mg PO Q6H PRN #30 tab 01/02/17 Allergies Allergy/AdvReac Type Severity Reaction Status Date / Time No Known Allergies Allergy Verified 05/22/17 02:19 Review of Systems ROS Statement: Those systems with pertinent positive or pertinent negative responses have been documented in the HPI. ROS Other: All systems not noted in ROS Statement are negative. Constitutional: Denies: fever, chills Respiratory: Denies: cough, dyspnea, hemoptysis Cardiovascular: Reports: palpitations. Denies: chest pain, dyspnea on exertion , orthopnea, edema, syncope Gastrointestinal: Denies: abdominal pain, nausea, vomiting, diarrhea Genitourinary: Denies: dysuria, hematuria Musculoskeletal: Denies: back pain Skin: Denies: rash Neurological: Denies: headache, weakness, numbness Psychiatric: Reports: anxiety Past Medical History Past Medical History: Diabetes Mellitus, GERD/Reflux, Hyperlipidemia, Skin Disorder, Supraventricular Tachycardia (SVT) Additional Past Medical History / Comment(s): HIATAL HERNIA, PSORIASIS History of Any Multi-Drug Resistant Organisms: None Reported Additional Past Surgical History / Comment(s): colonoscopy,egd, D&C Past Anesthesia/Blood Transfusion Reactions: No Reported Reaction Past Psychological History: Anxiety, Depression Smoking Status: Never smoker - Past Family History Father Family Medical History: Cancer Additional Family Medical History / Comment(s): from liver cancer General Exam Limitations: no limitations General appearance: alert, anxious Head exam: Present: atraumatic, normocephalic Eye exam: Present: normal appearance. Absent: scleral icterus, conjunctival injection Neck exam: Present: normal inspection Respiratory exam: Present: normal lung sounds bilaterally. Absent: respiratory distress, wheezes, rales, rhonchi, stridor, chest wall tenderness Cardiovascular Exam: Present: normal rhythm, tachycardia, normal heart sounds. Absent: systolic murmur, diastolic murmur, rubs, gallop GI/Abdominal exam: Present: soft. Absent: distended, tenderness, guarding, rebound Extremities exam: Present: normal inspection, normal capillary refill. Absent: pedal edema, calf tenderness Back exam: Present: normal inspection. Absent: CVA tenderness (R), CVA tenderness (L) Neurological exam: Present: alert Psychiatric exam: Present: anxious Skin exam: Present: warm, dry, intact, normal color. Absent: rash Course Vital Signs 05/22/17 05/22/17 05/22/17 02:17 02:45 04:16 Temperature 97.4 F L Pulse Rate 167 H 76 81 Respiratory 18 20 20 Rate Blood Pressure 117/75 144/62 118/65 O2 Sat by Pulse 100 100 99 Oximetry 05/22/17 06:24 Temperature 98.2 F Pulse Rate 72 Respiratory 20 Rate Blood Pressure 126/56 O2 Sat by Pulse 98 Oximetry EKG Findings - EKG Comments: EKG Findings:: The 12-lead EKG shows what appears to be a narrow complex tachycardia with a rate of 152, consistent with SVT. There is ST depressions suggestive of inferior subendocardial injury. - EKG Results: EKG: interpreted by YESIKA, normal axis, normal QRS Medical Decision Making - Lab Data Result diagrams: 05/22/17 02:34 05/22/17 02:34 Lab Results 05/22/17 05/22/17 05/22/17 Range/Units 02:34 02:34 02:34 WBC 11.6 H (3.8-10.6) k/uL RBC 5.26 (3.80-5.40) m/uL Hgb 16.0 (11.4-16.0) gm/dL Hct 48.5 H (34.0-46.0) % MCV 92.2 (80.0-100.0) fL MCH 30.5 (25.0-35.0) pg MCHC 33.1 (31.0-37.0) g/dL RDW 14.3 (11.5-15.5) % Plt Count 312 (150-450) k/uL Neutrophils % 61 % Lymphocytes % 32 % Monocytes % 4 % Eosinophils % 1 % Basophils % 1 % Neutrophils # 7.1 (1.3-7.7) k/uL Lymphocytes # 3.8 (1.0-4.8) k/uL Monocytes # 0.5 (0-1.0) k/uL Eosinophils # 0.1 (0-0.7) k/uL Basophils # 0.1 (0-0.2) k/uL PT (9.0-12.0) sec INR (<1.2) APTT (22.0-30.0) sec Sodium 139 (137-145) mmol/L Potassium 4.3 (3.5-5.1) mmol/L Chloride 101 (98-107) mmol/L Carbon Dioxide 22 (22-30) mmol/L Anion Gap 16 mmol/L BUN 16 (7-17) mg/dL Creatinine 0.90 (0.52-1.04) mg/dL Est GFR (MDRD) Af Amer >60 (>60 ml/min/1.73 sqM) Est GFR (MDRD) Non-Af >60 (>60 ml/min/1.73 sqM) Glucose 156 H (74-99) mg/dL Calcium 9.9 (8.4-10.2) mg/dL Magnesium 2.2 (1.6-2.3) mg/dL Total Bilirubin 0.7 (0.2-1.3) mg/dL AST 27 (14-36) U/L ALT 34 (9-52) U/L Alkaline Phosphatase 69 (38-126) U/L Total Creatine Kinase 47 (30-135) U/L CK-MB (CK-2) 1.4 (0.0-2.4) ng/mL CK-MB (CK-2) Rel Index 3.0 Troponin I 0.064 H* (0.000-0.034) ng/mL Total Protein 7.3 (6.3-8.2) g/dL Albumin 4.6 (3.5-5.0) g/dL TSH 4.400 (0.465-4.680) mIU/L Urine Color Urine Appearance (Clear) Urine pH (5.0-8.0) Ur Specific [place] (1.001-1.035) Urine Protein (Negative) Urine Glucose (UA) (Negative) Urine Ketones (Negative) Urine Blood (Negative) Urine Nitrite (Negative) Urine Bilirubin (Negative) Urine Urobilinogen (<2.0) mg/dL Ur Leukocyte Esterase (Negative) 05/22/17 05/22/17 Range/Units 02:34 04:21 WBC (3.8-10.6) k/uL RBC (3.80-5.40) m/uL Hgb (11.4-16.0) gm/dL Hct (34.0-46.0) % MCV (80.0-100.0) fL MCH (25.0-35.0) pg MCHC (31.0-37.0) g/dL RDW (11.5-15.5) % Plt Count (150-450) k/uL Neutrophils % % Lymphocytes % % Monocytes % % Eosinophils % % Basophils % % Neutrophils # (1.3-7.7) k/uL Lymphocytes # (1.0-4.8) k/uL Monocytes # (0-1.0) k/uL Eosinophils # (0-0.7) k/uL Basophils # (0-0.2) k/uL PT 11.2 (9.0-12.0) sec INR 1.1 (<1.2) APTT 25.0 (22.0-30.0) sec Sodium (137-145) mmol/L Potassium (3.5-5.1) mmol/L Chloride (98-107) mmol/L Carbon Dioxide (22-30) mmol/L Anion Gap mmol/L BUN (7-17) mg/dL Creatinine (0.52-1.04) mg/dL Est GFR (MDRD) Af Amer (>60 ml/min/1.73 sqM) Est GFR (MDRD) Non-Af (>60 ml/min/1.73 sqM) Glucose (74-99) mg/dL Calcium (8.4-10.2) mg/dL Magnesium (1.6-2.3) mg/dL Total Bilirubin (0.2-1.3) mg/dL AST (14-36) U/L ALT (9-52) U/L Alkaline Phosphatase (38-126) U/L Total Creatine Kinase (30-135) U/L CK-MB (CK-2) (0.0-2.4) ng/mL CK-MB (CK-2) Rel Index Troponin I (0.000-0.034) ng/mL Total Protein (6.3-8.2) g/dL Albumin (3.5-5.0) g/dL TSH (0.465-4.680) mIU/L Urine Color Yellow Urine Appearance Clear (Clear) Urine pH 6.5 (5.0-8.0) Ur Specific [place] 1.017 (1.001-1.035) Urine Protein Trace H (Negative) Urine Glucose (UA) Negative (Negative) Urine Ketones Negative (Negative) Urine Blood Negative (Negative) Urine Nitrite Negative (Negative) Urine Bilirubin Negative (Negative) Urine Urobilinogen <2.0 (<2.0) mg/dL Ur Leukocyte Esterase Negative (Negative) Critical Care Time Critical Care Time: Yes (35 minutes) Disposition Clinical Impression: Supraventricular tachycardia, Elevated troponin I level Disposition: ADMITTED IP TO THIS HOSP Condition: Fair
[2017-05-22 04:34] LABS: Appearance,Urine Clear (Clear); Bilirubin,Urine Negative (Negative); Glucose,Urine (UA) Negative (Negative); Ketones,Urine Negative (Negative); Leukocyte Esterase,Urine Negative (Negative); Nitrite,Urine Negative (Negative); PH, Urine 6.5 (5.0-8.0); Protein,Urine Trace (Negative); Specific Gravity,Urine 1.017 (1.001-1.035); UA Billing (MACRO vs. MICRO) CHEM; Urobilinogen,Urine <2.0 mg/dL (<2.0)
[2017-05-22] MEDS ORDERED: NITROGLYCERIN SL TABS 0.4 MG TAB SUBLINGUAL PRN (05:12)
[2017-05-22] MEDS ORDERED: traMADol 50 MG TAB PO PRN (05:16)
[2017-05-22] MEDS: SODIUM CHLORIDE 0.9% 1,000 ML IV SCH (05:27)
[2017-05-22] MEDS: LORazepam 1 MG TAB PO STA ×2 (05:41→06:46)
[2017-05-22] MEDS ORDERED: LORazepam 0.5 MG TAB PO STA (05:46)
[2017-05-22] MEDS ORDERED: LORazepam 1 MG TAB PO STA (06:41)
[2017-05-22 07:06] LABS: Glucose,Whole Blood 115 mg/dL (75-99)
[2017-05-22] MEDS ORDERED: METOPROLOL TARTRATE 5 MG/5 ML VIAL IVP ONE (08:53)
[2017-05-22] MEDS ORDERED: METOPROLOL TARTRATE 25 MG TAB PO SCH (09:00)
--- NOTE | 2017-05-22 09:00 | P.CRDCN ---
History of Present Illness Consult date: 05/22/17 History of present illness: This is a 67-year-old female with history of paroxysmal supraventricular tachycardia for which she has been treated with digoxin. She follows with Dr. Chamorro regularly. She was in this hospital in July of last year with similar episodes of SVT. She claims that she has been under a lot of stress because she lost her dog recently. She apparently noticed that her pulse being a rapid. Patient did not have any chest pain, shortness of breath or palpitations. This has been going on off and on. Finally she came to the hospital yesterday. She was found to be in SVT with a rapid ventricular response. Her troponin value was mildly elevated. There is only one set available at this time. Patient has been in sinus rhythm but had an episode of SVT while in ICU. I discussed the possibility of ablation, but patient did not want to have ablation done. She also is very anxious about taking any new medications. She was prescribed beta minh in the past, but she did not significant consistent basis. At this point we are going to wait for the next a troponin value and also echo reports. We'll may try her on small dose of beta minh along with digoxin. If she cannot tolerate the beta minh, may consider adding either Rythmol or flecainide. However,pt seems to be very anxious and doesn't seem to be open to changing her medication. Review of Systems REVIEW OF SYSTEMS: CONSTITUTIONAL:. Patient is doing well. No complaints of fever or chills. She seems to be very anxious EYES: Denies diplopia, blurring of vision EARS, NOSE, MOUTH, THROAT: Denies headaches, denies sore throat. CARDIOVASCULAR: As per HPI RESPIRATORY: Denies shortness of breath, denies cough. GASTROINTESTINAL: Denies change in appetite, denies abdominal pain, denies diarrhea GENITOURINARY: Denies hematuria, denies infections. MUSKULOSKELETAL: Denies pain, denies swelling. Denies any cramps or claudication INTEGUMENTARY: Denies rash, denies eczema. NEUROLOGICAL: Denies focal weakness, or visual disturbance. Denies any dizziness or syncope PSYCHIATRIC: Denies anxiety, denies depression. HEMATOLOGIC/LYMPHATIC: Denies any bleeding, denies enlarged lymph nodes. Past Medical History Past Medical History: Diabetes Mellitus, GERD/Reflux, Hyperlipidemia, Skin Disorder, Supraventricular Tachycardia (SVT) Additional Past Medical History / Comment(s): HIATAL HERNIA, PSORIASIS History of Any Multi-Drug Resistant Organisms: None Reported Additional Past Surgical History / Comment(s): colonoscopy,egd, D&C Past Anesthesia/Blood Transfusion Reactions: No Reported Reaction Past Psychological History: Anxiety, Depression Smoking Status: Never smoker - Past Family History Father Family Medical History: Cancer Additional Family Medical History / Comment(s): from liver cancer Medications and Allergies Home Medications Medication Instructions Recorded Confirmed Type Digoxin [Lanoxin] 250 mcg PO DAILY@1230 08/04/16 05/22/17 History LORazepam [Ativan] 0.5 mg PO HS 08/04/16 05/22/17 History PARoxetine [Paxil] 10 mg PO QAM 08/04/16 05/22/17 History PARoxetine [Paxil] 40 mg PO DAILY@1200 08/04/16 05/22/17 History Allergies Allergy/AdvReac Type Severity Reaction Status Date / Time No Known Allergies Allergy Verified 05/22/17 07:21 Physical Exam Vitals: Vital Signs Temp Pulse Resp BP Pulse Ox 05/22/17 06:24 98.2 F 72 20 126/56 98 05/22/17 04:16 81 20 118/65 99 05/22/17 02:45 76 20 144/62 100 05/22/17 02:17 97.4 F L 167 H 18 117/75 100 Intake and Output 05/21/17 05/22/17 05/22/17 22:59 06:59 14:59 Other: Weight 74.843 kg GENERAL EXAM: Patient is alert and oriented and doesn't appear to be in any acute distress HEENT: Normocephalic. Normal reaction of pupils, equal size, normal range of extraocular motion. No erythema or exudates in the throat. NECK: No masses, no nuchal rigidity. CHEST: No chest wall deformity. LUNGS: Equal air entry with no crackles or wheeze. HEART: S1 and S2 normal with no audible mumurs or gallops. Regular rhythm, femorals equal on both sides.. ABDOMEN: No hepatosplenomegaly, normal bowel sounds, no guarding or rigidity. SKIN: No rashes CENTRAL NERVOUS SYSTEM: No focal deficits. EXTREMITIES: No cyanosis, clubbing or edema. Results 05/22/17 02:34 05/22/17 02:34 Cardiac Enzymes 05/22/17 05/22/17 Range/Units 02:34 02:34 AST 27 (14-36) U/L CK-MB (CK-2) 1.4 (0.0-2.4) ng/mL Troponin I 0.064 H* (0.000-0.034) ng/mL Coagulation 05/22/17 Range/Units 02:34 PT 11.2 (9.0-12.0) sec APTT 25.0 (22.0-30.0) sec CBC 05/22/17 Range/Units 02:34 WBC 11.6 H (3.8-10.6) k/uL RBC 5.26 (3.80-5.40) m/uL Hgb 16.0 (11.4-16.0) gm/dL Hct 48.5 H (34.0-46.0) % Plt Count 312 (150-450) k/uL Comprehensive Metabolic Panel 05/22/17 Range/Units 02:34 Sodium 139 (137-145) mmol/L Potassium 4.3 (3.5-5.1) mmol/L Chloride 101 (98-107) mmol/L Carbon Dioxide 22 (22-30) mmol/L BUN 16 (7-17) mg/dL Creatinine 0.90 (0.52-1.04) mg/dL Glucose 156 H (74-99) mg/dL Calcium 9.9 (8.4-10.2) mg/dL AST 27 (14-36) U/L ALT 34 (9-52) U/L Alkaline Phosphatase 69 (38-126) U/L Total Protein 7.3 (6.3-8.2) g/dL Albumin 4.6 (3.5-5.0) g/dL Current Medications Generic Name Dose Route Start Last Admin Trade Name Freq PRN Reason Stop Dose Admin Aspirin 325 mg 05/23/17 09:00 Aspirin PO DAILY [facility] Digoxin 250 mcg 05/22/17 12:30 Lanoxin PO 1230 [facility] Enoxaparin Sodium 75 mg 05/22/17 09:00 Lovenox SQ Q12HR [facility] Sodium Chloride 1,000 mls @ 100 mls/hr 05/22/17 02:29 05/22/17 02:32 Saline 0.9% IV 05/22/17 12:28 100 mls/hr .Q10H STA Administration Sodium Chloride 1,000 mls @ 20 mls/hr 05/22/17 05:15 05/22/17 05:27 Saline 0.9% IV 20 mls/hr .Q24H PATY Administration Lorazepam 0.5 mg 05/22/17 21:00 Ativan PO HS PATY Nitroglycerin 0.4 mg 05/22/17 05:12 Nitrostat SUBLINGUAL Q5M PRN Chest Pain Paroxetine HCl 10 mg 05/22/17 09:00 Paxil PO QAM PATY Paroxetine HCl 40 mg 05/22/17 12:00 Paxil PO 1200 [facility] Tramadol HCl 50 mg 05/22/17 05:16 Ultram PO Q6H PRN Pain Intake and Output 05/21/17 05/22/17 05/22/17 22:59 06:59 14:59 Other: Weight 74.843 kg 05/22/17 02:34 05/22/17 02:34 EKG Interpretations (text) Sinus rhythm with nonspecific ST-T changes. Some EKG showed SVT Assessment and Plan (1) Hypertriglyceridemia Status: Acute (2) Supraventricular tachycardia Status: Acute Plan: Continue with digoxin. Add small dose of beta minh. Follow cardiac enzymes studies and echo reports. Further recommendations will depend upon the clinical course
[2017-05-22 09:10] VITALS: BMI 28.1
[2017-05-22] MEDS: ENOXAPARIN 80 MG/0.8 ML SYRINGE SQ SCH ×2 (09:31→21:24)
[2017-05-22] MEDS: METOPROLOL TARTRATE 25 MG TAB PO SCH (09:32)
[2017-05-22] MEDS: PARoxetine 10 MG TAB PO SCH (09:32)
[2017-05-22] MEDS: PARoxetine 20 MG TAB PO SCH (09:32)
[2017-05-22 09:54] LABS: Creatine Kinase MB 1.7 ng/mL (0.0-2.4)
[2017-05-22 10:01] LABS: Troponin I 0.329 ng/mL (0.000-0.034)
[2017-05-22] MEDS: DIGOXIN 250 MCG TAB PO SCH (12:43)
[2017-05-22 15:16] LABS: Creatine Kinase MB 1.4 ng/mL (0.0-2.4)
[2017-05-22 15:20] LABS: Troponin I 0.238 ng/mL (0.000-0.034)
--- NOTE | 2017-05-22 16:34 | P.HPIM ---
History of Present Illness H&P Date: 05/22/17 Chief Complaint: Heart racing History of present complaint: This is a pleasant 67-year-old patient of Dr. Chávez. Chronic stable medical conditions include GERD, scoliosis, hiatal hernia,. Patient had SVT off and on for many years. Patient around 3 PM yesterday notice a heart to be racing and colostomy then decided come into the hospital. There is no chest pain or shortness of breath. Only tired and rundown. Patient is given an adenosine in the ER. Later patient reverted to sinus rhythm. Significant past medical history includes GERD, SVT, hiatal hernia, psoriasis. Anxiety depression Social history: Does not smoke or drink alcohol. Family history: Liver cancer GEN.: Tired EYES: None HEENT: None NECK: None RESPIRATORY: None CARDIOVASCULAR: As above GASTROINTESTINAL: None GENITOURINARY: None MUSCULOSKELETAL: None LYMPHATICS: None HEMATOLOGICAL: None PSYCHIATRY: None NEUROLOGICAL: None VITAL SIGNS: 97.4, once 87, 18, 117/75, 100% room air upon presentation GENERAL: Average built, sitting up, comfortable. EYES: Pupils equal. Conjunctiva normal. HEENT: External appearance of nose and ears normal, oral cavity grossly normal. NECK: JVD not raised; masses not palpable. HEART: First and second heart sounds are normal; no edema. LUNGS: Respiratory rate normal; clear to auscultation. ABDOMEN: Soft, nontender, liver spleen not palpable, no masses palpable. LYMPHATICS: No lymph nodes palpable in the axilla and neck. PSYCH: Alert and oriented x3; mood and affect normal. NEUROLOGICAL: Cranial nerves grossly intact; no facial asymmetry, power and sensation grossly intact DERMATOLOGICAL: psoriasis especially of the elbows. Labs: White count 11.6, hemoglobin 16, potassium 4.3, renal function normal, Troponin 0.064, 0.0329, EKG on presentation SVT Assessment: Paroxysmal supraventricular tachycardia lasting for a few hours in order to sinus rhythm possibly with adenosine associated with troponin leak -GERD -Anxiety depression otherwise specified -Psoriasis Plan: Cartilage was consulted. Patient is on aspirin. Digoxin Lopressor. Home medications are resumed. Patient also on Lovenox. Await further input from cartilage. Care was discussed with the patient detail. Past Medical History Past Medical History: Diabetes Mellitus, GERD/Reflux, Hyperlipidemia, Skin Disorder, Supraventricular Tachycardia (SVT) Additional Past Medical History / Comment(s): HIATAL HERNIA, PSORIASIS History of Any Multi-Drug Resistant Organisms: None Reported Additional Past Surgical History / Comment(s): colonoscopy,egd, D&C Past Anesthesia/Blood Transfusion Reactions: No Reported Reaction Past Psychological History: Anxiety, Depression Smoking Status: Never smoker - Past Family History Father Family Medical History: Cancer Additional Family Medical History / Comment(s): from liver cancer Medications and Allergies Home Medications Medication Instructions Recorded Confirmed Type Digoxin [Lanoxin] 250 mcg PO DAILY@1230 08/04/16 05/22/17 History LORazepam [Ativan] 0.5 mg PO HS 08/04/16 05/22/17 History PARoxetine [Paxil] 10 mg PO QAM 08/04/16 05/22/17 History PARoxetine [Paxil] 40 mg PO DAILY@1200 08/04/16 05/22/17 History Allergies Allergy/AdvReac Type Severity Reaction Status Date / Time No Known Allergies Allergy Verified 05/22/17 07:21 Physical Exam Vitals: Vital Signs Temp Pulse Pulse Resp BP BP Pulse Ox 05/22/17 16:00 97.8 F 63 16 106/61 98 05/22/17 12:45 97.7 F 67 16 116/70 98 05/22/17 10:58 62 20 110/55 97 05/22/17 10:00 65 19 99 05/22/17 09:00 125 H 24 114/70 100 05/22/17 08:00 73 13 114/70 99 05/22/17 07:03 131/76 05/22/17 06:24 98.2 F 72 20 126/56 98 05/22/17 05:37 98.8 F 05/22/17 04:16 81 20 118/65 99 05/22/17 02:45 76 20 144/62 100 05/22/17 02:17 97.4 F L 167 H 18 117/75 100 Intake and Output 05/22/17 05/22/17 05/22/17 06:59 14:59 22:59 Intake Total 140 Output Total 0 Balance 140 Intake: Intake, IV Titration 20 Amount Sodium Chloride 0.9% 1, 20 000 ml @ 20 mls/hr IV . Q24H [facility] Rx#:[id number] Oral 120 Output: Urine 0 Other: Weight 81.6 kg Results CBC & Chem 7: 05/22/17 02:34 05/22/17 02:34
--- NOTE | 2017-05-22 17:49 | P.PN ---
Progress Note - Text DATE OF SERVICE: 05/22/2017 PRESENTING COMPLAINT: Heart racing INTERVAL HISTORY: 67-year-old female history of SVT off and on for many years. Noted her heart to be racing came in for evaluation. 05/22/2017: Patient lying in bed appears comfortable, ambulatory in the room the hallway. No further episodes of fluttering heart elevated heart rate. Tolerating her diet, last BM today. REVIEW OF SYSTEMS: Done for constitutional ,cardiovascular, GI, pulmonary with relevant findings as above. CURRENT MEDICATIONS Aspirin, Lovenox 75 mg subcu every 12 hours, Paxil, PHYSICAL EXAM VITAL SIGNS: Temperature 98.2, pulse 72, respirations 20, blood pressure 126/65, oxygen saturation 98% on 2 L GENERAL APPEARANCE: Lying in bed, not in distress. EYES: Pupils equal. Conjunctiva normal. NECK: JVD not raised. Mass not palpable. RESPIRATORY: Respiratory effort normal. Lungs clear to auscultation. CARDIOVASCULAR: First and second sounds normal. No edema. ABDOMEN: Soft. Liver and spleen not palpable. No tenderness. No mass palpable. PSYCHIATRY: Alert and oriented x3. Mood and affect normal. INVESTIGATIONS: White blood cell count 11.6, troponin 0.23, TSH 4.40. ASSESSMENT: -Paroxysmal supraventricular tachycardia lasting a few hours with conversion to sinus rhythm possibly with adenosine associated with a troponin leak. -GERD. -Anxiety depression not otherwise specified. -Psoriasis PLAN: Continue with digoxin and a small dose of beta minh. Await echocardiogram results. Plan of care discussed with the patient and she is in agreement. We' ll follow closely. [employer] HELPER statement: Patient was seen and examined by nurse practitioner Louisa Cat and all elements of the case discussed with attending Dr. Morin
[2017-05-22] MEDS ORDERED: LORazepam 0.5 MG TAB PO SCH (21:00)
[2017-05-22] MEDS ORDERED: METOPROLOL TARTRATE 12.5 MG TAB PO STA (21:22)
[2017-05-22 23:47] VITALS: RESP 16
[2017-05-23 06:30] LABS: Anion Gap 9 mmol/L; Blood Urea Nitrogen 9 mg/dL (7-17); Calcium 9.2 mg/dL (8.4-10.2); Carbon Dioxide 25 mmol/L (22-30); Chloride 109 mmol/L (98-107); Cholesterol 167 mg/dL (<200); Glucose 87 mg/dL (74-99); HDL Cholesterol 30 mg/dL (40-60); Non-African American GFR(MDRD) >60 (>60 ml/min/1.73 sqM); Potassium 4.2 mmol/L (3.5-5.1); Sodium 143 mmol/L (137-145); Triglycerides 161 mg/dL (<150)
[2017-05-23] MEDS: SODIUM CHLORIDE 0.9% 1,000 ML IV SCH (07:52)
[2017-05-23] MEDS: PARoxetine 10 MG TAB PO SCH (08:03)
[2017-05-23] MEDS: METOPROLOL TARTRATE 25 MG TAB PO SCH (08:04)
[2017-05-23] MEDS: ENOXAPARIN 80 MG/0.8 ML SYRINGE SQ SCH (08:04)
[2017-05-23 08:11] VITALS: TEMP 97.7
[2017-05-23] MEDS ORDERED: ASPIRIN 325 MG TAB PO SCH (09:00)
--- NOTE | 2017-05-23 11:16 | ECHOF ---
Referral Reason:svt MEASUREMENTS -------- HEIGHT: 170.2 cm WEIGHT: 81.2 kg BP: 130/60 RVIDd: 2.8 cm (< 3.3) IVSd: 1.2 cm (0.6 - 1.1) LVIDd: 4.1 cm (3.9 - 5.3) LVPWd: 0.8 cm (0.6 - 1.1) IVSs: 1.2 cm LVIDs: 2.9 cm LVPWs: 1.5 cm LA Diam: 4.6 cm (2.7 - 3.8) LAESV Index (A-L): 26.06 ml/m Ao Diam: 3.4 cm (2.0 - 3.7) AV Cusp: 1.3 cm (1.5 - 2.6) LA Diam: 4.5 cm (2.7 - 3.8) MV EXCURSION: 16.659 mm (> 18.000) MV EF SLOPE: 100 mm/s (70 - 150) EPSS: 0.5 cm MV E Alon: 0.50 m/s MV DecT: 208 ms MV A Alon: 0.78 m/s MV E/A Ratio: 0.65 RAP: 5.00 mmHg RVSP: 13.09 mmHg FINDINGS -------- Sinus rhythm. This was a technically adequate study. There is mild concentric left ventricular hypertrophy. Overall left ventricular systolic function is normal with, an EF between 55 - 60 %. The right ventricle is normal in size. Normal LA size by volume 22+/-6 ml/m2. The right atrial size is normal. There is mild aortic valve sclerosis. There is no evidence of aortic regurgitation. Mild mitral annular calcification present. Mild mitral regurgitation is present. Mild tricuspid regurgitation present. There is no evidence of pulmonary hypertension. The right ventricular systolic pressure, as measured by Doppler, is 13.09mmHg. There is no pulmonic regurgitation present. The aortic root size is normal. There is no pericardial effusion. CONCLUSIONS -------- 1. There is mild concentric left ventricular hypertrophy. 2. There is no pericardial effusion. 3. Overall left ventricular systolic function is normal with, an EF between 55 - 60 %. 4. There is mild aortic valve sclerosis. 5. Mild mitral annular calcification present. 6. Mild mitral regurgitation is present. 7. Mild tricuspid regurgitation present. 8. There is no evidence of pulmonary hypertension. 9. The right ventricular systolic pressure, as measured by Doppler, is 13.09mmHg. 10. There is no pulmonic regurgitation present. FOLDING MACHINE SETTER: Adriana Delong RDCS
[2017-05-23] MEDS: DIGOXIN 250 MCG TAB PO SCH (12:01)
[2017-05-23] MEDS: PARoxetine 20 MG TAB PO SCH (12:01)
[2017-05-23 12:21] VITALS: BP 100/53; PULSE 56
--- NOTE | 2017-05-23 12:51 | P.PN ---
Subjective Principal diagnosis: SVT This is a 67-year-old female with history of paroxysmal supraventricular tachycardia for which she has been treated with digoxin. She follows with Dr. Chamorro regularly. She was in this hospital in July of last year with similar episodes of SVT. She claims that she has been under a lot of stress because she lost her dog recently. She apparently noticed that her pulse being a rapid. Patient did not have any chest pain, shortness of breath or palpitations. This has been going on off and on. Finally she came to the hospital yesterday. She was found to be in SVT with a rapid ventricular response. Her troponin value was mildly elevated. There is only one set available at this time. Patient has been in sinus rhythm but had an episode of SVT while in ICU. I discussed the possibility of ablation, but patient did not want to have ablation done. She also is very anxious about taking any new medications. She was prescribed beta minh in the past, but she did not significant consistent basis. At this point we are going to wait for the next a troponin value and also echo reports. We'll may try her on small dose of beta minh along with digoxin. If she cannot tolerate the beta minh, may consider adding either Rythmol or flecainide. However,pt seems to be very anxious and doesn't seem to be open to changing her medication. 05/23/2017 Patient seen and examined this morning, no further episodes of supraventricular tachycardia. In normal sinus rhythm with PACs. Echocardiogram with Doppler study revealed normal left ventricular systolic function. From cardiology's perspective she may be able to be discharged home today. She was recommended to undergo a stress test as an outpatient. A follow-up appointment will be made with Dr. Chamorro in the office. Objective - Vital Signs Vital signs: Vital Signs Temp 97.7 F 05/23/17 12:19 Pulse 56 L 05/23/17 12:19 Resp 16 05/23/17 12:19 BP 100/53 05/23/17 12:19 Pulse Ox 98 05/23/17 12:19 Intake & Output 05/22/17 05/23/17 05/23/17 18:59 06:59 18:59 Intake Total 260 100 0 Output Total 0 Balance 260 100 0 Weight 77.2 kg Intake: IV 100 Sodium Chloride 0.9% 1, 100 000 ml @ 20 mls/hr IV . Q24H PATY Rx#:[id number] Intake, IV Titration 20 Amount Sodium Chloride 0.9% 1, 20 000 ml @ 20 mls/hr IV . Q24H PATY Rx#:[id number] Oral 240 0 Output: Urine 0 Other: # Voids 2 1 - Exam PHYSICAL EXAMINATION: HEENT: Head is atraumatic, normocephalic. Pupils equal, round. Neck is supple. There is no elevated jugular venous pressure. HEART EXAMINATION: Heart S1, S2 normal. No murmur or gallop heard. CHEST EXAMINATION: Lungs are clear to auscultation and precussion. No chest wall tenderness is noted on palpation or with deep breathing. ABDOMEN: Soft, nontender. Bowel sounds are heard. No organomegaly noted]. EXTREMITIES:[ 2+ peripheral pulses with no evidence of peripheral edema and no calf tenderness noted]. NEUROLOGIC [patient is awake, alert and oriented -3.] . - Labs CBC & Chem 7: 05/22/17 02:34 05/23/17 06:06 Labs: Abnormal Lab Results - Last 24 Hours (Table) 05/22/17 05/23/17 Range/Units 14:16 06:06 Chloride 109 H (98-107) mmol/L Troponin I 0.238 H* (0.000-0.034) ng/mL Triglycerides 161 H (<150) mg/dL LDL Cholesterol, Calc 105 H (0-99) mg/dL HDL Cholesterol 30 L (40-60) mg/dL Assessment and Plan (1) Elevated troponin I level Status: Acute (2) Hypertriglyceridemia Status: Acute (3) Supraventricular tachycardia Status: Acute Plan: From cardiology's perspective, patient may be able to be discharged home today. We'll make her a follow-up appointment to see Dr. Lilly in the office post discharge. She's been recommended to undergo stress test as an outpatient. DNP note has been reviewed, I agree with a documented findings and plan of care. Patient was seen and examined.
--- NOTE | 2017-05-23 16:34 | P.DS ---
Providers Date of admission: 05/22/17 05:12 Expected date of discharge: 05/23/17 Attending physician: Silvano Morin Consults: 05/22/17 05:12 Consult Physician Routine Consulting Provider: Mulugeta Mauricio Consult Reason/Comments: SVT. Elevated troponin. Do you want consulting provider notified?: Yes Primary care physician: [facility] Course: Hospital course: Intermittent heart racing found to be in SVT. Did receive adenosine. No further episodes. Patient did have a troponin leak. Cardiology will do an outpatient stress test. Patient's been up and about. No chest pain no shortness of breath.. 2-D echo showed preserved LV function EF 55-60%. Patient is put on a small dose of beta minh.. Back on ALLERGY to go home. Patient's LDL is [address] Juarez from cardiology Discussion DC planning more than 35 minutes. On examination: Lungs are clear, cardiovascular first seconds are normal Final diagnosis: Paroxysmal supraventricular tachycardia lasting for a few hours converting to sinus rhythm possibly with adenosine associated with troponin leak -GERD -Anxiety depression not otherwise specified -Psoriasis Patient Condition at Discharge: Fair Plan - Discharge Summary New Discharge Prescriptions: New Aspirin 81 mg PO DAILY Nitroglycerin Sl Tabs [Nitrostat] 0.4 mg SUBLINGUAL Q5M PRN #20 tab PRN Reason: Chest Pain traMADol HCl [Ultram] 50 mg PO Q6H PRN tab PRN Reason: Pain Metoprolol Tartrate [Lopressor] 12.5 mg PO BID #60 tab Continue PARoxetine [Paxil] 10 mg PO QAM PARoxetine [Paxil] 40 mg PO DAILY@1200 LORazepam [Ativan] 0.5 mg PO HS Digoxin [Lanoxin] 250 mcg PO DAILY@1230 Discharge Medication List Digoxin [Lanoxin] 250 mcg PO DAILY@1230 08/04/16 [History] LORazepam [Ativan] 0.5 mg PO HS 08/04/16 [History] PARoxetine [Paxil] 10 mg PO QAM 08/04/16 [History] PARoxetine [Paxil] 40 mg PO DAILY@1200 08/04/16 [History] Aspirin 81 mg PO DAILY 05/23/17 [Rx] Metoprolol Tartrate [Lopressor] 12.5 mg PO BID #60 tab 05/23/17 [Rx] Nitroglycerin Sl Tabs [Nitrostat] 0.4 mg SUBLINGUAL Q5M PRN #20 tab 05/23/17 [Rx ] traMADol HCl [Ultram] 50 mg PO Q6H PRN tab 05/23/17 [Rx] Follow up Appointment(s)/Referral(s): Robbie Chávez DO [Primary Care Provider] - 1 Week (office to call with appointment) Grupo Chamorro MD [STAFF PHYSICIAN] - 05/30/17 2:45 pm Patient Instructions/Handouts: Supraventricular Tachycardia (DC)
[2017-05-24] MEDS ORDERED: ASPIRIN 81 MG CHEW PO SCH (09:00)
== END 2017-05-23 16:48 | disposition home or self-care (01) | DRG 310 ==
LOC: EC 02:13 → 6ICU 05:12 → 6SEL 12:11
PROVIDERS: ADMIT Hospitalist; ATTEND Hospitalist
DX: I47.1 Supraventricular tachycardia (principal); M41.9 Scoliosis, unspecified; F32.9 Major depressive disorder, single episode, unspecified; E78.5 Hyperlipidemia, unspecified; I49.1 Atrial premature depolarization; F41.9 Anxiety disorder, unspecified; E11.9 Type 2 diabetes mellitus without complications; R74.8 Abnormal levels of other serum enzymes; K21.9 Gastro-esophageal reflux disease without esophagitis; E78.1 Pure hyperglyceridemia; L40.9 Psoriasis, unspecified; K44.9 Diaphragmatic hernia without obstruction or gangrene; Z79.899 Other long term (current) drug therapy; Z80.0 Family history of malignant neoplasm of digestive organs; Z86.79 Personal history of other diseases of the circulatory system; Z87.42 Personal history of other diseases of the female genital tract; Z63.79 Other stressful life events affecting family and household
CPT/HCPCS: 36415; 71010; 80048; 80053; 80061; 80162; 81003; 82550; 82553; 83735; 84443; 84484; 85025; 85610; 85730; 93005; 93306; 96361; 96374; 99291

== ENCOUNTER → 2018-03-13 | Outpatient (CLI) | payer MEDICARE, OTHER ==
--- NOTE | 2018-03-14 08:51 | US ---
EXAMINATION TYPE: US pelvic complete DATE OF EXAM: 03/13/2018 COMPARISON: US CLINICAL HISTORY: R31.9 Hematuria; microscopic hematuria TECHNIQUE: Transabdominal (TA). Transabdominal sonographic images of the pelvis were acquired. Date of LMP: post menopause EXAM MEASUREMENTS: Uterus: 6.7 x 3.3 x 2.1 cm Endometrial Stripe: 0.4 cm Right Ovary: 1.8 x 1.8 x 1.2cm Left Ovary: 1.9 x 1.2 x 0.9 cm 1. Uterus: Anteverted; small Nabothian cyst in ULISSES/cervix = 0.5 x 0.5 x 0.3cm. 2. Endometrium: thickness is wnl post menopause 3. Right Ovary: area thought to be ovary is wnl 4. Left Ovary: area thought to be ovary is wnl 5. Bilateral Adnexa: wnl 6. Posterior cul-de-sac: wnl 7. Bladder: bilateral ureteral jets are seen. Bladder wall appears wnl. Post void volume is wnl = 16. 4ml. IMPRESSION: 1. Normal pelvic ultrasound
--- NOTE | 2018-03-14 08:55 | US ---
EXAMINATION TYPE: US abdomen complete DATE OF EXAM: 03/13/2018 COMPARISON: 05/03/2017 CLINICAL HISTORY: R31.9 Hematuria; microscopic hematuria; renal cyst per patient; GB removed EXAM MEASUREMENTS: Liver Length: 14.1 cm Gallbladder Wall: surgically removed CBD: 0.4 cm Spleen: 8.9 cm Right Kidney: 10.1 x 6.2 x 4.7 cm Left Kidney: 11.0 x 5.0 x 5.0 cm Pancreas: no masses seen Liver: fatty as is hyperechoic to right renal cortex Gallbladder: surgically absent Evidence for sonographic Villalpando's sign: No CBD: wnl Spleen: wnl Right Kidney: hyperechoic, solid oval mass = 0.8 x 0.7 x 0.8cm and as previously seen mid cortex zelaya ggests angiomyolipoma. Left Kidney: No hydronephrosis or masses seen; dromedary hump is noted mid cortex by US Upper IVC: wnl Abd Aorta: upper aorta at upper limits of normal A/P measure; mild intimal wall thickening is noted mid and distally IMPRESSION: 1. 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 This was present on the comparison study.
== END | disposition home or self-care (01) ==
LOC: RADUSWWP 15:03
PROVIDERS: ATTEND Family Medicine
DX: R31.9 Hematuria, unspecified (principal)
CPT/HCPCS: 76700; 76856

== ENCOUNTER → 2019-01-29 | Outpatient (CLI) | payer MEDICARE, OTHER ==
--- NOTE | 2019-01-30 07:17 | US ---
EXAMINATION TYPE: US kidneys/renal and bladder DATE OF EXAM: 01/29/2019 COMPARISON: US & CT CLINICAL HISTORY: ABD PAIN. F/U Right renal lesion EXAM MEASUREMENTS: Right Kidney: 10.6 x 4.6 x 5.0 cm Left Kidney: 11.6 x 5.8 x 4.7 cm Right Kidney: 0.8 x 0.8 x 0.8 cm hyperechoic lesion as seen on previous/ previous measurement= 0.8 x 0.7 x 0.8 cm Left Kidney: Possible cyst upper pole= 1.1 x 1.1 x 1.0 cm/ otherwise appeared wnl Bladder: wnl Bilateral Jets seen: Yes There is no evidence for hydronephrosis at this point in time. No nephrolithiasis is seen. The uri nary bladder is anechoic. Bilateral ureteral jets are seen. IMPRESSION: 1. 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 2. Simple cyst left kidney unchanged.
== END | disposition home or self-care (01) ==
LOC: RADUSWWP 15:38
PROVIDERS: ATTEND Physician Assistant
DX: N28.1 Cyst of kidney, acquired (principal)
CPT/HCPCS: 76770

== ENCOUNTER → 2019-03-18 | Outpatient (CLI) | payer MEDICARE, OTHER ==
--- NOTE | 2019-03-20 10:10 | MM ---
Reason for exam: screening (asymptomatic). Last mammogram was performed 3 years and 3 months ago. History: Patient is postmenopausal and is nulliparous. Took estrogen for 5 years. Physical Findings: A clinical breast exam by your physician is recommended on an annual basis and results should be correlated with mammographic findings. MG 3D Screening Mammo W/Cad Bilateral CC and MLO view(s) were taken. Prior study comparison: December 28, 2015, bilateral MG 3d screening mammo w/cad. December 15, 2010, mammogram, performed at [facility]. No significant changes when compared with prior studies. ASSESSMENT: Benign, BI-RAD 2 RECOMMENDATION: Routine screening mammogram of both breasts in 1 year.
== END ==
LOC: RADMAMWWP 13:01
PROVIDERS: ATTEND Obstetrics & Gynecology
DX: Z12.31 Encounter for screening mammogram for malignant neoplasm of breast (principal)
CPT/HCPCS: 77063; 77067

== ENCOUNTER → 2019-06-30 | Outpatient (CLI) | payer MEDICARE ==
--- NOTE | 2019-06-30 15:21 | US ---
EXAMINATION TYPE: US abdomen comp/pelvis limited DATE OF EXAM: 06/30/2019 COMPARISON: 01/29/2019 CLINICAL HISTORY: K76.9 Liver disease, unspecified;N28.89 Renal mass. no symptoms, bilateral renal le sions, h/o fatty liver EXAM MEASUREMENTS: Liver Length: 16.0 cm Gallbladder Wall: Surgically absent cm CBD: 0.6 cm Spleen: 10.2 cm Right Kidney: 10.3 x 4.9 x 5.2 cm Left Kidney: 11.5 x 4.5 x 5.6 cm Pancreas: wnl Liver: Difficult to penetrate. There is increased echogenicity of the hepatic parenchyma with dimini shed visualization of the portal triads most commonly relating to hepatic steatosis and limiting eval uation for underlying hepatic masses. Gallbladder: Surgically absent CBD: wnl Spleen: wnl Right Kidney: 1.0cm probable angiomyolipoma on a anterior cortex Left Kidney: 1.4cm inferior pole cyst that has been seen previously Upper IVC: wnl Abd Aorta: wnl Bladder: not fully distended, did prep Bilateral Jets Seen no IMPRESSION: 1. Sonographic findings most commonly related to hepatic steatosis. Correlate with liver function dottie ts. 2. Benign-appearing 1.4 cm left renal cyst and probable 1.0 cm right angiomyolipoma that were both se en on the exam of 01/29/2019 with slight interval increase in size of the left renal cyst.
--- NOTE | 2019-06-30 15:27 | US ---
EXAMINATION TYPE: US pelvic complete DATE OF EXAM: 06/30/2019 COMPARISON: NONE CLINICAL HISTORY: K76.9 Liver disease, unspecified;N28.89 Renal mass. TECHNIQUE: Transabdominal (TA). Patient did not want vaginal ultrasound. Date of LMP: post menopausal EXAM MEASUREMENTS: Uterus: 5.4 x 2.1 x 3.1 cm Endometrial Stripe: 0.3 cm Right Ovary: obscured by bowel/atrophy Left Ovary: obscured by bowel/atrophy 1. Uterus: Anteverted, wnl 2. Endometrium: wnl 3. Right Ovary: obscured by bowel/atrophy 4. Left Ovary: obscured by bowel/atrophy 5. Bilateral Adnexa: wnl 6. Posterior cul-de-sac: wnl IMPRESSION: Uterus and endometrium are within normal limits. Ovaries are obscured by bowel gas and li fransisca atrophic. The patient declined transvaginal imaging for further assessment of the ovaries.
== END | disposition home or self-care (01) ==
LOC: RADUSWWP 13:28
PROVIDERS: ATTEND Family Medicine
DX: N28.1 Cyst of kidney, acquired (principal); K76.9 Liver disease, unspecified
CPT/HCPCS: 76700; 76856; 76857

== ENCOUNTER → 2020-07-18 | Outpatient (CLI) | payer MEDICARE ==
--- NOTE | 2020-07-18 15:33 | US ---
EXAMINATION TYPE: US abdomen comp/pelvis limited DATE OF EXAM: 07/18/2020 COMPARISON: CT abdomen pelvis 06/30/2019 CLINICAL HISTORY: K76.9 Liver disease N28.1. known renal lesions, no symptoms EXAM MEASUREMENTS: Liver Length: 14.3 cm Gallbladder Wall: Surgically absent CBD: 0.6 cm Spleen: 10.2 cm Right Kidney: 10.1 x 5.3 x 5.1 cm Left Kidney: 10.1 x 4.1 x 5.2 cm Pancreas: wnl Liver: wnl Gallbladder: Surgically absent CBD: wnl Spleen: wnl Right Kidney: Echogenic foci which could be an angiomyolipoma = 1.1cm. This was present previously. Left Kidney: cyst seen = 1.7cm . This was present previously measuring 1.4 cm. Upper IVC: wnl Abd Aorta: wnl Bladder: wnl IMPRESSION: 1. Left renal cyst, enlarging to 1.7 cm from 1.4 cm. 2. Suspected cortical angiomyolipoma right kidney
== END | disposition home or self-care (01) ==
LOC: RADUSWWP 13:54
PROVIDERS: ATTEND Family Medicine
DX: N28.1 Cyst of kidney, acquired (principal)
CPT/HCPCS: 76700; 76857

== ENCOUNTER → 2022-03-22 | Outpatient (CLI) | payer MEDICARE ==
--- NOTE | 2022-03-22 17:13 | CONS ---
CONSULTATION DATE OF SERVICE: 03/22/2022 This 72-year-old lady has been evaluated in [facility] for possible obstructive sleep apnea-hypopnea syndrome. HISTORY OF PRESENT ILLNESS/SLEEP-WAKE EVALUATION: Patient's usual sleep schedule is from 8 or 9 p.m. until 8 a.m. Sometimes she has problems with falling asleep. She has a TV set in the bedroom. She usually sleeps on the side position. According to her family, she snores and she wakes up from sleep several times with episodes of nocturia. During the night she has kicking with her legs and also sometimes [id number] movements with her arms. Questionable history of hypnagogic hallucinations. No history of sleep paralysis or cataplexy. Cullen Sleepiness Scale is 3. The patient take naps all day, according to her and her, although Cullen Sleepiness Scale is in a low range. PAST MEDICAL HISTORY: Positive for supraventricular tachycardia, anxiety. PAST SURGICAL HISTORY: Cholecystectomy. MEDICATIONS: Paxil 50 mg once a day, digoxin 0.25 mg once a day, metoprolol 25 mg half tablet twice a day, lorazepam 0.5 mg on p.r.n. basis. SOCIAL HISTORY: Negative for smoking or using alcohol. FAMILY HISTORY: Positive for angina, cancer, mental illness. REVIEW OF SYSTEMS: Multiple awakenings from sleep, tiredness and sleepiness during the day. No fevers. No double vision. No recent chest pain. No shortness of breath. No abdominal pain. No bleeding episodes. No blood in the urine. No seizure episodes. PHYSICAL EXAMINATION: GENERAL: Pleasant lady without distress. VITAL SIGNS: BP 133/76, HR 66, RR 12, height 5 feet 7 inches, weight 174.8 pounds, temperature 97.1, oxygen saturation at room air 95%. HEENT: PERRLA, EOMI, evaluation of oropharynx showed tongue protrudes midline. Extremely low position of soft palate; Mallampati IV. NECK: Supple, no JVD. Thyroid is not palpable. Neck measures 15 inches in circumference. LUNGS: Clear to percussion and to auscultation. Good air exchange. No wheezing or rhonchi. HEART: S1, S2 regular. No murmurs, gallops, or rubs. ABDOMEN: Soft and nontender. Bowel sounds are present. No organomegaly appreciated. EXTREMITIES: No clubbing or cyanosis. STEEL INSPECTOR: Awake, alert, and oriented X3. Cranial nerves 2 to 7 intact. There is no fasciculation or atrophy. noted. No focal deficits observed. IMPRESSION: 1. Snoring, multiple awakenings from sleep with nocturia, extremely low position of soft palate, Mallampati IV, sleepiness during the day; obstructive sleep apnea- hypopnea syndrome. 2. History of supraventricular tachycardia. 3. Twitching legs during the night; periodic limb movements. 4. History of [id number] movements; possible REM sleep behavioral disorder. 5. Anxiety. 6. Status post cholecystectomy. PLAN: 1. Patient was recommended to do a polysomnogram for evaluation of her breathing during sleep and also to check for possible REM sleep behavioral disorder, but the patient does not feel comfortable doing a test outside of her home. We agreed to start with a home sleep apnea test. 2. CPAP/BiPAP titration if sleep study confirms obstructive sleep apnea-hypopnea syndrome. 3. Preferable position during sleep on the side. 4. No driving if patient feels any sleepiness. 5. I will see patient for follow up visit to explain results of testing and following plan. Thank you very much for referring this patient for consultation. Sincerely, Sen Driver MD, PhD, FAASM Diplomat of [place] [employer] Sleep Medicine Board of [place] [employer] [facility] [place] [facility] [place] MMNANCY / LAINE: [id number] /
== END ==
LOC: SLEEP 15:18
PROVIDERS: ATTEND Internal Medicine
DX: G47.33 Obstructive sleep apnea (adult) (pediatric) (principal); Z86.79 Personal history of other diseases of the circulatory system; G47.61 Periodic limb movement disorder; F41.9 Anxiety disorder, unspecified; Z90.49 Acquired absence of other specified parts of digestive tract; Z79.899 Other long term (current) drug therapy
CPT/HCPCS: 99211

== ENCOUNTER → 2022-04-09 | Outpatient (CLI) | payer MEDICARE ==
--- NOTE | 2022-04-09 19:57 | US ---
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 pain hx of cyst gallbladder removed. EXAM MEASUREMENTS: Liver Length: 16.4 cm Gallbladder Wall: Surgically absent CBD: .4 cm Spleen: 10.3 cm Right Kidney: 10.6 x 3.9 x 3.8 cm Left Kidney: 10.4 x 4.5 x cm Pancreas: Tail obscured by bowel gas Liver: Increased attenuation Gallbladder: Surgically absent CBD: wnl Spleen: wnl Right Kidney: Echogenic area seen .5 x .6 x .9 cm Left Kidney: Anechoic area seen mid pole 1.4 x 1.1 x 1.0 cm. Upper IVC: wnl Abd Aorta: wnl Bladder: wnl Bilateral Jets Seen Yes IMPRESSION: 1. Small echogenic focus within the right renal cortex. This was present previously without interval growth. 2. Small simple cysts left kidney
== END | disposition home or self-care (01) ==
LOC: RADUSWWP 12:10
PROVIDERS: ATTEND Family Medicine
DX: N28.1 Cyst of kidney, acquired (principal)
CPT/HCPCS: 76700; 76857

== ENCOUNTER 2023-02-19 15:20 | Observation (INO) | payer MEDICARE ==
--- NOTE | 2023-02-19 16:08 | ED ---
Dizziness HPI - General Chief Complaint: Dizziness Stated Complaint: DIZZINESS-LIGHT HEADED Time Seen by Provider: 02/19/23 15:40 Source: patient, RN notes reviewed Mode of arrival: ambulatory Limitations: no limitations - History of Present Illness Initial Comments: 72-year-old female history of anxiety who states she awoke from a nap around 12 noon today with dizziness. She states she felt very dizzy he would increase with head movement and some eye movement. She denied any overt focal deficits however family who did bring her over to the hospital status she was having trouble with speech and upon initial evaluation apparently was somewhat weak on the left side compared to the right. This is improving however at this time. She doesn't believe that she's ever had a stroke before she did have a episode of dizziness about a year ago which was similar to this. She denies any fevers chills nausea vomiting sweats or other symptoms MD Complaint: dizziness, lightheadedness, difficulty walking, other - Related Data Home Medications Medication Instructions Recorded Confirmed Digoxin [Lanoxin] 250 mcg PO DAILY 08/04/16 02/19/23 PARoxetine [Paxil] 10 mg PO DAILY 08/04/16 02/19/23 Previous Rx's Medication Instructions Recorded Metoprolol Tartrate [Lopressor] 12.5 mg PO BID #60 tab 05/23/17 Nitroglycerin Sl Tabs [Nitrostat] 0.4 mg SUBLINGUAL Q5M PRN #20 tab 05/23/17 Allergies Allergy/AdvReac Type Severity Reaction Status Date / Time No Known Allergies Allergy Verified 02/19/23 18:42 Review of Systems ROS Statement: Those systems with pertinent positive or pertinent negative responses have been documented in the HPI. ROS Other: All systems not noted in ROS Statement are negative. Past Medical History Past Medical History: Diabetes Mellitus, GERD/Reflux, Hyperlipidemia, Skin Disorder, Supraventricular Tachycardia (SVT) Additional Past Medical History / Comment(s): HIATAL HERNIA, PSORIASIS History of Any Multi-Drug Resistant Organisms: None Reported Additional Past Surgical History / Comment(s): colonoscopy,egd, D&C Past Anesthesia/Blood Transfusion Reactions: No Reported Reaction Past Psychological History: Anxiety, Depression Smoking Status: Never smoker Past Alcohol Use History: None Reported Past Drug Use History: None Reported - Past Family History Father Family Medical History: Cancer Additional Family Medical History / Comment(s): from liver cancer General Exam - General Exam Comments Initial Comments: This is a well-developed well-nourished awake alert oriented 4 female Limitations: no limitations General appearance: alert, anxious Head exam: Present: atraumatic, normocephalic, normal inspection Eye exam: Present: normal appearance, PERRL, EOMI. Absent: scleral icterus, conjunctival injection, periorbital swelling ENT exam: Present: normal exam, mucous membranes moist Neck exam: Present: normal inspection. Absent: tenderness, meningismus, lymphadenopathy Respiratory exam: Present: normal lung sounds bilaterally. Absent: respiratory distress, wheezes, rales, rhonchi, stridor Cardiovascular Exam: Present: regular rate, normal rhythm, normal heart sounds. Absent: systolic murmur, diastolic murmur, rubs, gallop, clicks GI/Abdominal exam: Present: soft, normal bowel sounds. Absent: distended, tenderness, guarding, rebound, rigid Extremities exam: Present: normal inspection, full ROM, normal capillary refill. Absent: tenderness, pedal edema, joint swelling, calf tenderness Back exam: Present: normal inspection Neurological exam: Present: alert, oriented X3, CN II-XII intact Psychiatric exam: Present: normal affect, normal mood Skin exam: Present: warm, dry, intact, normal color. Absent: rash Course Vital Signs 02/19/23 02/19/23 02/19/23 15:27 16:10 16:50 Temperature 98.6 F Pulse Rate 65 64 70 Respiratory 20 16 16 Rate Blood Pressure 149/91 157/71 156/70 O2 Sat by Pulse 98 99 99 Oximetry - Reevaluation(s) Reevaluation #1: 02/19/23 16:17 On my examination patient did demonstrate slight dysarthria otherwise no other findings Reevaluation #2: 02/19/23 18:57 Patient was offered a trial of Antivert she did not want it due to potential side effects. EKG Findings - EKG Results: EKG: interpreted by ERMD (EKG interpreted by me sinus rhythm a 62 WA interval 189 QRS duration 112 QT since QTC 428/432 left exodeviation moderate inte rventricular conduction delay) Medical Decision Making - Medical Decision Making I did discuss findings with the patient. No evidence of intercerebral pathology at this time. Due to the patient's findings her NIH. B3 upon arrival 1 on my exam and 0 at this time. The presentation appears be consistent with TIA she will be admitted with neurology consultation I did discuss the case with Dr. Morin. Was pt. sent in by a medical professional or institution ([facility], [facility], urgent care, hospital, or long-term...) When possible be specific @ -No Did you speak to anyone other than the patient for history (EMS, parent, family, police, friend...)? What history was obtained from this source @ -Family Did you review nursing and triage notes (agree or disagree)? Why? @ -I reviewed and agree with nursing and triage notes Were old charts reviewed (outside hosp., previous admission, EMS record, old EKG, old radiological studies, urgent care reports/EKG's, long-term records)? Report findings @ -No old charts were reviewed Differential Diagnosis (chest pain, altered mental status, abdominal pain women, abdominal pain men, vaginal bleeding, weakness, fever, dyspnea, syncope, headache, dizziness, GI bleed, back pain, seizure, CVA, palpatations, mental health, musculoskeletal)? @ -CVA, TIA, vertigo EKG interpreted by me (3pts min.). @ -As above X-rays interpreted by me (1pt min.). @ -As above CT interpreted by me (1pt min.). @ -As above U/S interpreted by me (1pt. min.). @ -None done What testing was considered but not performed or refused? (CT, X-rays, U/S, labs)? Why? @ -None What meds were considered but not given or refused? Why? @ -None Did you discuss the management of the patient with other professionals (professionals i.e. [facility], [facility]RNA[employer] INTER[employer], lab, RT, psych nurse, manager social media, chief talent officer, teacher, professional security officer, correctional case manager)? Give summary @ -Dr. Morin Was smoking cessation discussed for >3mins.? @ -No Was critical care preformed (if so, how long)? @ -39 minutes Were there social determinants of health that impacted care today? How? (Homelessness, low income, unemployed, alcoholism, drug addiction, transportation, low edu. Level, literacy, decrease access to med. care, retirement, rehab)? @ -No Was there de-escalation of care discussed even if they declined (Discuss DNR or withdrawal of care, Hospice)? DNR status @ -No What co-morbidities impacted this encounter? (DM, HTN, Smoking, COPD, CAD, Cancer, CVA, ARF, Chemo, Hep., AIDS, mental health diagnosis, sleep apnea, morbid obesity)? @ -Diabetes, GERD, hypothyroidism, history of SVT Was patient admitted / discharged? Hospital course, mention meds given and route, prescriptions, significant lab abnormalities, going to OR and other pertinent info. @ -hospital course patient was admitted to the hospital for inpatient evaluation treatment neurological consultation Undiagnosed new problem with uncertain prognosis? @ -TIA Drug Therapy requiring intensive monitoring for toxicity (Heparin, Nitro, Insulin, Cardizem)? @ -No Were any procedures done? @ -No Diagnosis/symptom? @ -TIA, dizziness Acute, or Chronic, or Acute on Chronic? @ -Acute Uncomplicated (without systemic symptoms) or Complicated (systemic symptoms)? @ -default Side effects of treatment? @ -No Exacerbation, Progression, or Severe Exacerbation? @ -No Poses a threat to life or bodily function? How? (Chest pain, [place], [place], pneumonia, PE, COPD, DKA, ARF, appy, cholecystitis, CVA, Diverticulitis, Homicidal, Suicidal, threat to staff... and all critical care pts) @ -Yes TIA - Lab Data Result diagrams: 02/19/23 16:04 02/19/23 16:04 Lab Results 02/19/23 02/19/23 02/19/23 Range/Units 16:04 16:04 16:04 WBC 7.1 (3.8-10.6) k/uL RBC 5.05 (3.80-5.40) m/uL Hgb 15.1 (11.4-16.0) gm/dL Hct 43.7 (34.0-46.0) % MCV 86.6 (80.0-100.0) fL MCH 29.9 (25.0-35.0) pg MCHC 34.6 (31.0-37.0) g/dL RDW 12.8 (11.5-15.5) % Plt Count 185 (150-450) k/uL MPV 8.2 Neutrophils % 77 % Lymphocytes % 17 % Monocytes % 4 % Eosinophils % 1 % Basophils % 0 % Neutrophils # 5.5 (1.3-7.7) k/uL Lymphocytes # 1.2 (1.0-4.8) k/uL Monocytes # 0.3 (0-1.0) k/uL Eosinophils # 0.0 (0-0.7) k/uL Basophils # 0.0 (0-0.2) k/uL PT 10.3 (9.0-12.0) sec INR 1.0 (<1.2) APTT 22.4 (22.0-30.0) sec Sodium 137 (137-145) mmol/L Potassium 4.6 (3.5-5.1) mmol/L Chloride 100 (98-107) mmol/L Carbon Dioxide 26 (22-30) mmol/L Anion Gap 11 mmol/L BUN 21 H (7-17) mg/dL Creatinine 0.66 (0.52-1.04) mg/dL Est GFR (CKD-EPI)AfAm >90 (>60 ml/min/1.73 sqM) Est GFR (CKD-EPI)NonAf 87 (>60 ml/min/1.73 sqM) Glucose 151 H (74-99) mg/dL Calcium 9.4 (8.4-10.2) mg/dL Magnesium 2.5 H (1.6-2.3) mg/dL Total Bilirubin 0.6 (0.2-1.3) mg/dL AST 33 (14-36) U/L ALT 25 (4-34) U/L Alkaline Phosphatase 65 (38-126) U/L Creatine Kinase 60 (30-135) U/L Troponin I (0.000-0.034) ng/mL Total Protein 7.5 (6.3-8.2) g/dL Albumin 4.5 (3.5-5.0) g/dL TSH 1.610 (0.465-4.680) mIU/L Digoxin 1.1 ng/mL 02/19/23 Range/Units 16:04 WBC (3.8-10.6) k/uL RBC (3.80-5.40) m/uL Hgb (11.4-16.0) gm/dL Hct (34.0-46.0) % MCV (80.0-100.0) fL MCH (25.0-35.0) pg MCHC (31.0-37.0) g/dL RDW (11.5-15.5) % Plt Count (150-450) k/uL MPV Neutrophils % % Lymphocytes % % Monocytes % % Eosinophils % % Basophils % % Neutrophils # (1.3-7.7) k/uL Lymphocytes # (1.0-4.8) k/uL Monocytes # (0-1.0) k/uL Eosinophils # (0-0.7) k/uL Basophils # (0-0.2) k/uL PT (9.0-12.0) sec INR (<1.2) APTT (22.0-30.0) sec Sodium (137-145) mmol/L Potassium (3.5-5.1) mmol/L Chloride (98-107) mmol/L Carbon Dioxide (22-30) mmol/L Anion Gap mmol/L BUN (7-17) mg/dL Creatinine (0.52-1.04) mg/dL Est GFR (CKD-EPI)AfAm (>60 ml/min/1.73 sqM) Est GFR (CKD-EPI)NonAf (>60 ml/min/1.73 sqM) Glucose (74-99) mg/dL Calcium (8.4-10.2) mg/dL Magnesium (1.6-2.3) mg/dL Total Bilirubin (0.2-1.3) mg/dL AST (14-36) U/L ALT (4-34) U/L Alkaline Phosphatase (38-126) U/L Creatine Kinase (30-135) U/L Troponin I <0.012 (0.000-0.034) ng/mL Total Protein (6.3-8.2) g/dL Albumin (3.5-5.0) g/dL TSH (0.465-4.680) mIU/L Digoxin ng/mL - Radiology Data Interpreted by me: Imaging interpreted by me no acute findings. No evidence of any bleeding no midline shift no masses Critical Care Time Critical Care Time: Yes Total Critical Care Time: 39 Disposition Clinical Impression: TIA (transient ischemic attack), Dizziness Disposition: ADMITTED IP TO THIS [facility] Condition: Stable Referrals: Robbie Chávez DO [Primary Care Provider] - 1-2 days Decision Date: 02/19/23 Decision Time: 18:59
[2023-02-19 16:16] LABS: Basophils % (A) 0 %; Eosinophils % (A) 1 %; HCT 43.7 % (34.0-46.0); HGB 15.1 gm/dL (11.4-16.0); Lymphocytes # (A) 1.2 k/uL (1.0-4.8); Lymphocytes % (A) 17 %; MCH 29.9 pg (25.0-35.0); MCHC 34.6 g/dL (31.0-37.0); MCV 86.6 fL (80.0-100.0); Mean Platelet Volume 8.2; Monocytes # (A) 0.3 k/uL (0-1.0); Monocytes % (A) 4 %; Neutrophils # (A) 5.5 k/uL (1.3-7.7); Neutrophils % (A) 77 %; Platelet Count 185 k/uL (150-450); RBC 5.05 m/uL (3.80-5.40); RDW 12.8 % (11.5-15.5); WBC 7.1 k/uL (3.8-10.6)
[2023-02-19 16:24] LABS: ALT 25 U/L (4-34); AST 33 U/L (14-36); African American GFR (CKD) >90 (>60 ml/min/1.73 sqM); Albumin 4.5 g/dL (3.5-5.0); Alkaline Phosphatase 65 U/L (38-126); Anion Gap 11 mmol/L; Blood Urea Nitrogen 21 mg/dL (7-17); Calcium 9.4 mg/dL (8.4-10.2); Carbon Dioxide 26 mmol/L (22-30); Chloride 100 mmol/L (98-107); Creatine Kinase 60 U/L (30-135); Glucose 151 mg/dL (74-99); Magnesium 2.5 mg/dL (1.6-2.3); Non-African American GFR(CKD) 87 (>60 ml/min/1.73 sqM); Potassium 4.6 mmol/L (3.5-5.1); Sodium 137 mmol/L (137-145); Total Bilirubin 0.6 mg/dL (0.2-1.3); Total Protein 7.5 g/dL (6.3-8.2)
[2023-02-19 16:32] LABS: Partial Thromboplastin Time 22.4 sec (22.0-30.0); Prothrombin Time 10.3 sec (9.0-12.0)
--- NOTE | 2023-02-19 16:39 | CT ---
EXAMINATION TYPE: CT brain wo con DATE OF EXAM: 02/19/2023 COMPARISON: None HISTORY: 72-year-old female with neurologic deficit, acute, stroke suspected TECHNIQUE: Examination was done in axial plane without intravenous contrast. Coronal and sagittal r econstructions performed. CT DLP: 1159.6 mGycm Automated exposure control for dose reduction was used. FINDINGS: There is no evidence of acute intracranial hemorrhage, acute ischemic changes, mass, mass-effect, or extra-axial fluid collection. There is no effacement of cerebral sulci or basal subarachnoid cister ns. There is no hydrocephalus. There is no midline shift. Brand-white matter distinction is preserv ed. Minimal superior cerebral cortical volume loss. Mild mucosal thickening medial right maxillary sinus. Slight leftward nasal septal deviation. Orbits and globes are intact. Mastoid air cells well pneumatized. IMPRESSION: No acute intracranial abnormality seen.
--- NOTE | 2023-02-19 17:09 | XR ---
EXAMINATION TYPE: XR chest 2V DATE OF EXAM: 02/19/2023 COMPARISON: Chest x-ray May 22, 2017 HISTORY: Altered mental status and weakness. TECHNIQUE: Frontal and lateral views of the chest are obtained. FINDINGS: Overlying EKG leads are present. Elevated and eventrated anterior aspect right hemidiaphrag m. There is no focal air space opacity, pleural effusion, or pneumothorax seen. The cardiac silhouet te size is stable and within normal limits. The osseous structures are intact. IMPRESSION: No acute cardiopulmonary process.
--- NOTE | 2023-02-19 17:14 | CT ---
EXAMINATION TYPE: CT angio head neck DATE OF EXAM: 02/19/2023 HISTORY: cva COMPARISON: None. CT DLP: 444 mGycm. Automated Exposure Control for Dose Reduction was Utilized. TECHNIQUE: CTA scan of the head and neck is performed with IV Contrast, patient injected with 65cc m L of Isovue 370, axial images are obtained, coronal and sagittal reformatted images are reviewed. 3D reconstructed images are created on an independent workstation and reviewed. FINDINGS: Carotid/Vascular Structures: There is 4 vessel origin from the aortic arch which is normal variant. N o significant focal stenosis. No significant plaque or stenosis in the common carotid arteries bilate rally. There is moderate calcified plaque at right carotid bulb extending into the proximal internal carotid artery without significant stenosis. There is mild to moderate mixed plaque in the left carot id bulb extending into proximal internal carotid artery without significant stenosis. Patent external carotid arteries bilaterally without significant plaque or stenosis. Vertebral arteries are patent to the basilar junction. Right vertebral artery is dominant. There is n o significant focal stenosis or aneurysm in the posterior circulation. There is a patent right suit attendant ior communicating artery. There is hypoplastic left posterior communicating artery. Images of the anterior circulation show patent anterior communicating artery. There is no significant focal stenosis or aneurysm seen. Other: Mild disc space narrowing C5-C6 and C6-C7 levels. There is heterogeneous slightly enlarged thy roid with bilateral thyroid nodules measuring greater than 1 cm. IMPRESSION: 1. No significant stenosis in common or internal carotid arteries bilaterally. No significant stenosi s or aneurysm at the level of the [place]. 2. Bilateral thyroid nodules. Nonemergent thyroid ultrasound follow-up is advised to further evaluate and characterize if this is not known finding. NASCET criteria was used in interpretation of this exam?
[2023-02-19 17:59] LABS: Digoxin 1.1 ng/mL
[2023-02-19] MEDS ORDERED: SODIUM CHLORIDE 0.9% 1,000 ML IV SCH (19:00)
[2023-02-19] MEDS ORDERED: NITROGLYCERIN SL TABS 0.4 MG TAB SUBLINGUAL PRN (19:02)
[2023-02-19] MEDS: FAMOTIDINE 20 MG/2 ML VIAL IV SCH (21:15)
[2023-02-19] MEDS: METOPROLOL TARTRATE 12.5 MG TAB PO SCH (21:15)
--- NOTE | 2023-02-19 22:02 | P.HPIM ---
History of Present Illness H&P Date: 02/19/23 Chief Complaint: Dizzy This is a pleasant 72-year-old patient follows with Dr. Chávez. Chronic stable medical conditions include GERD, hyperlipidemia, psoriasis, hiatal hernia, anxiety depression afternoon patient woke up from a nap in the afternoon. [place] rather dizzy and off-balance. Had some nausea. Patient held onto things and went to the bathroom. Slowly improved. Later again when she tried a walker for the same day. Patient does complain of sinus symptoms. Feels a fullness in the left ear. No change in vision or speech. No numbness or any Percocet or weakness. Computed tomography scan a CT angiogram of the brain in the ER both unremarkable. Feels better though not back to the baseline. Still unsteady. Review of systems: GEN.: Tired EYES: None HEENT: Neck stiffness, some left ear feeling of fullness NECK: None RESPIRATORY: None CARDIOVASCULAR: None GASTROINTESTINAL: None GENITOURINARY: None MUSCULOSKELETAL: Arthritis LYMPHATICS: None HEMATOLOGICAL: None PSYCHIATRY: None NEUROLOGICAL: As above Past medical history to include: GERD, hyperlipidemia, hiatal hernia, scoliosis, anxiety depression Social history: No smoking or alcohol. . Physical examination: VITAL SIGNS: 98.6, 65, 20, 149/91, 98% room air GENERAL: BMI 26.8, returning but awake slightly anxious. EYES: Pupils equal. Conjunctiva normal. HEENT: External appearance of nose and ears normal, oral cavity grossly normal. NECK: JVD not raised; masses not palpable. HEART: First and second heart sounds are normal; no edema. LUNGS: Respiratory rate normal; clear to auscultation. ABDOMEN: Soft, nontender, liver spleen not palpable, no masses palpable. PSYCH: Alert and oriented x3; mood and affect normal. MUSCULOSKELETAL:No Clubbing/cyanosis;muscles-grossly intact. OA NEUROLOGICAL: Cranial nerves grossly intact; no facial asymmetry, power and sensation grossly intact. No nystagmus. No dysdiadochokinesis. No pass pointing. LYMPHATICS: No lymph nodes palpable in the axilla and neck INVESTIGATIONS, reviewed in the clinical context: CT brain without contrast: Unremarkable CT angiogram of the head and neck: Unremarkable White count 7.1 hemoglobin 15.1 platelets 185 sodium 137 potassium 4.6 creatinine 0.66 Troponin I less than 0.012 TSH 1.6 EKG tracing personally reviewed by me-normal sinus rhythm. Chest x-ray film personally reviewed by me-some elevation of right diaphragm Assessment and plan: -Episode of acute dizziness. With some sensation of the ER some symptoms of sinus congestion. Patient could be having acute labyrinthitis. Will try patient on Antivert. Central cause to be ruled out. Neurology consulted. MRI of the brain with and without contrast. -Anxiety depression otherwise specified Paxil 10 mg a day -Essential hypertension Lopressor 12.5 mg by mouth twice a day -Elevation of right diaphragm.: Rule out paralysis sniff test with fluoroscopy Past Medical History Past Medical History: Diabetes Mellitus, GERD/Reflux, Hyperlipidemia, Skin Disorder, Supraventricular Tachycardia (SVT) Additional Past Medical History / Comment(s): HIATAL HERNIA, PSORIASIS History of Any Multi-Drug Resistant Organisms: None Reported Additional Past Surgical History / Comment(s): colonoscopy,egd, D&C Past Anesthesia/Blood Transfusion Reactions: No Reported Reaction Past Psychological History: Anxiety, Depression Smoking Status: Never smoker Past Alcohol Use History: None Reported Past Drug Use History: None Reported - Past Family History Father Family Medical History: Cancer Additional Family Medical History / Comment(s): from liver cancer Medications and Allergies Home Medications Medication Instructions Recorded Confirmed Type Digoxin [Lanoxin] 250 mcg PO DAILY 08/04/16 02/19/23 History PARoxetine [Paxil] 10 mg PO DAILY 08/04/16 02/19/23 History Metoprolol Tartrate [Lopressor] 12.5 mg PO BID #60 tab 05/23/17 02/19/23 Rx Nitroglycerin Sl Tabs [Nitrostat] 0.4 mg SUBLINGUAL Q5M PRN #20 tab 05/23/17 02/19/23 Rx Allergies Allergy/AdvReac Type Severity Reaction Status Date / Time No Known Allergies Allergy Verified 02/19/23 18:42 Physical Exam Vitals: Vital Signs Temp Pulse Resp BP Pulse Ox 02/19/23 16:50 70 16 156/70 99 02/19/23 16:10 64 16 157/71 99 02/19/23 15:27 98.6 F 65 20 149/91 98 Intake and Output 02/19/23 02/19/23 02/19/23 06:59 14:59 22:59 Other: Weight 77.564 kg Results CBC & Chem 7: 02/19/23 16:04 02/19/23 16:04 Labs: Abnormal Lab Results - Last 24 Hours (Table) 02/19/23 Range/Units 16:04 BUN 21 H (7-17) mg/dL Glucose 151 H (74-99) mg/dL Magnesium 2.5 H (1.6-2.3) mg/dL
[2023-02-19] MEDS ORDERED: NALOXONE 0.4 MG/ML 1 ML VIAL IV PRN (22:08)
[2023-02-19] MEDS ORDERED: LACTULOSE 20 GM/30 ML CUP PO PRN (22:08)
[2023-02-19] MEDS ORDERED: IBUPROFEN 400 MG TAB PO PRN (22:08)
[2023-02-19] MEDS ORDERED: CALCIUM CARBONATE 500 MG CHEWABLE PO PRN (22:08)
[2023-02-19] MEDS ORDERED: ACETAMINOPHEN TAB 325 MG TAB PO PRN (22:08)
[2023-02-19] MEDS ORDERED: ONDANSETRON 4 MG/2 ML VIAL IVP PRN (22:08)
[2023-02-19] MEDS: ASPIRIN 81 MG PO SCH (22:23)
[2023-02-19] MEDS: ENOXAPARIN 40 MG/0.4 ML SYRINGE SQ SCH (22:24)
[2023-02-20] MEDS ORDERED: DIGOXIN 250 MCG TAB PO SCH (09:00)
[2023-02-20] MEDS: ENOXAPARIN 40 MG/0.4 ML SYRINGE SQ SCH (09:36)
[2023-02-20] MEDS: LORazepam 0.5 MG TAB PO PRN ×2 (09:36→09:37)
[2023-02-20] MEDS: FAMOTIDINE 20 MG/2 ML VIAL IV SCH (09:36)
[2023-02-20] MEDS: PARoxetine 10 MG TAB PO SCH ×2 (09:36→10:53)
[2023-02-20] MEDS: ASPIRIN 81 MG PO SCH (09:37)
[2023-02-20] MEDS: METOPROLOL TARTRATE 12.5 MG TAB PO SCH (09:37)
[2023-02-20 11:14] LABS: Chol/HDL Ratio 5.08 Ratio; LDL Cholesterol,Calculated 82.5 mg/dL (0.0-131.0)
--- NOTE | 2023-02-20 11:14 | MR ---
EXAMINATION TYPE: MR brain wo/w con DATE OF EXAM: 02/20/2023 COMPARISON: CT brain from yesterday. HISTORY: Extremity weakness, stroke/TIA TECHNIQUE: Multiplanar, multisequence images of the brain and brainstem is performed without and with IV contras t, utilizing 8 mL intravenous Gadavist . FINDINGS: Diffusion weighted images demonstrate no evidence of a recent infarct or other diffusion ab normality. There is mild ventricular and sulcal prominence. There are scattered foci of T2 hyperinten sity seen throughout the white matter bilaterally. Approximate 25-35 small scattered lesions are seen . Lesions are nonspecific in appearance and distribution. Midline structures demonstrate normal morphology. The craniocervical junction appears within normal limits. Post contrast images demonstrate no abnormal enhancement. The dural venous sinuses appear pa tent. The visualized sinuses are clear and the globes are intact. IMPRESSION: 1. No MRI evidence for recent infarct. 2. Background mild diffuse age-related cerebral atrophy and mild to moderate nonspecific white matter changes favor product of chronic small vessel ischemic change in patient of this age.
--- NOTE | 2023-02-20 11:19 | FL ---
EXAMINATION TYPE: FL sniff test without CXR DATE OF EXAM: 02/20/2023 COMPARISON: Chest x-ray from one day earlier along with older x-rays through March 08, 2014 HISTORY: Abnormal x-ray. Right diaphragm elevation. TECHNIQUE: Fluoroscopic assisted sniff test FINDINGS: Fluoroscopic guidance was provided during sniff test procedure performed by myself. A tot al of 1 minute 20 seconds of fluoroscopic time was utilized during the procedure and 43 spot images w as acquired. Total dose area product (DAP) in uGy*m?, mGy*cm? (or similar): n/a. The patient has very shallow inspiration and expiration when asked to do long deep inspiration and ex piration. Fluoroscopic sniff test shows paradoxical elevation of the right hemidiaphragm. When breath ing and coughing there is satisfactory motion of the left hemidiaphragm in the appropriate direction despite patient only able to take small volume breaths. There is poor movement of the right hemidiaph ragm. Some paradoxical motion is felt present. IMPRESSION: Suboptimal study as patient has poor volume capacity for deep inspiration. 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 This likely has been present back thro2013.
[2023-02-20 11:37] VITALS: RESP 16
[2023-02-20] MEDS ORDERED: MECLIZINE 25 MG TAB PO STA (11:57)
--- NOTE | 2023-02-20 14:23 | P.CNNES ---
History of Present Illness Consult date: 02/20/23 Requesting physician: Suresh Stratton Reason for Consult: TIA, dizziness History of Present Illness: Patient is a 72-year-old female came to the hospital yesterday at 3:20 PM for an episode of dizziness on waking up. Patient states that she sleeps a lot. She usually sleeps from 10 PM to 6:30 AM. Then she takes another 4-5 during the day, each of them lasting for about 1-1/2 to 2-1/2 hours. Patient states that yesterday she woke up at 6 AM, then took a couple afterwards. At around 11 AM she wanted to take another nap and told her to call her in an hour. Her woke her up from deep sleep, and she felt like she was dreaming like herself pulling out of dream, very hard to wake up. Finally when she woke up. And after a few minutes, she started noticing dizziness, which she describes as lightheadedness, no vertigo. As the dizziness persisted, she decided to come to the ER. She did not have any stroke symptoms like slurred speech, facial droop, focal weakness, numbness, diplopia, usual disturbance. After she arrived to the ER, her dizziness improved, but not gone. However this morning when she woke up, the symptoms have mostly resolved. Patient states that about a year ago she had a similar episode when she woke up with lightheadedness and dizziness, that lasted for about 10 or 20 minutes and then went away. She may have had another episode but it was too short and she attributed it to either getting up too fast, or from low sugar or low blood pressure. Patient denies any history of sleep paralysis, any history of cataplexy. She does get vivid dreams. She has noticed herself waking up with periodic limb movements about 3 times in the past. She has hypersomnolence for about 20 years. Patient states that she does not fall asleep while sitting or watching TV, she has to actually lay down in order to sleep as mentioned above. Patient states that she was taking high dose Paxil 50 mg daily. She has been slowly cutting back on her Paxil from 50 mg daily down to 10 mg daily. She has slightly improved, but the hypersomnolence has not resolved. Patient never has undergone sleep study. Vital signs on arrival blood pressure 149/91, pulse rate 65, temperature 98.6. CT head revealed no acute intracranial process. EKG shows sinus rhythm. Chest x-ray showed no acute cardiac or process. CTA of head and neck revealed no significant stenosis in common or internal carotid arteries bilaterally. No significant stenosis or aneurysm at the level of cheesh-na of [place]. Bilateral thyroid node use, nonemergent thyroid ultrasound recommended. Patient's blood test shows normal CBC, PT/PTT, normal electrolytes, renal functions, hepatic panel is normal, troponin negative, TSH is normal. Patient's home medications include Paxil 10 mg daily, digoxin, nitroglycerin and metoprolol 12.5 mg twice a day. Review of Systems Constitutional: Denies chills, Denies fever Eyes: denies blurred vision, denies diplopia, denies pain Ears: bilateral: decreased hearing, deny: ear discharge, earache, tinnitus Ears, nose, mouth and throat: Denies headache, Denies sore throat, Denies vertigo Cardiovascular: Reports lightheadedness, Denies chest pain, Denies shortness of breath, Denies syncope Respiratory: Denies cough, Denies excessive sputum Gastrointestinal: Denies abdominal pain, Denies diarrhea, Denies nausea, Denies vomiting Genitourinary: Denies dysuria, Denies hematuria Musculoskeletal: Denies myalgias, Denies neck pain Integumentary: Denies pruritus, Denies rash Neurological: Reports as per HPI, Denies change in speech, Denies convulsions, Denies head injury, Denies loss of vision, Denies numbness, Denies paralysis, Denies paresthesias, Denies seizures, Denies sensory deficit, Denies syncope, Denies transient paralysis, Denies vertigo, Denies weakness, Denies visual lockett es Psychiatric: Reports anxiety, Reports depression, Reports hypersomnia, Denies paranoia Endocrine: Reports fatigue, Denies weight change Past Medical History Past Medical History: Diabetes Mellitus, GERD/Reflux, Hyperlipidemia, Skin Disorder, Supraventricular Tachycardia (SVT) Additional Past Medical History / Comment(s): HIATAL HERNIA, PSORIASIS History of Any Multi-Drug Resistant Organisms: None Reported Additional Past Surgical History / Comment(s): colonoscopy,egd, D&C Past Anesthesia/Blood Transfusion Reactions: No Reported Reaction Past Psychological History: Anxiety, Depression Smoking Status: Never smoker Past Alcohol Use History: None Reported Past Drug Use History: None Reported - Past Family History Father Family Medical History: Cancer Additional Family Medical History / Comment(s): from liver cancer Medications and Allergies Home Medications Medication Instructions Recorded Confirmed Type Digoxin [Lanoxin] 250 mcg PO DAILY 08/04/16 02/19/23 History PARoxetine [Paxil] 10 mg PO DAILY 08/04/16 02/19/23 History Metoprolol Tartrate [Lopressor] 12.5 mg PO BID #60 tab 05/23/17 02/19/23 Rx Nitroglycerin Sl Tabs [Nitrostat] 0.4 mg SUBLINGUAL Q5M PRN #20 tab 05/23/17 02/19/23 Rx Allergies Allergy/AdvReac Type Severity Reaction Status Date / Time No Known Allergies Allergy Verified 02/19/23 18:42 Physical Examination - Vital Signs Vital Signs: Vital Signs Temp Pulse Pulse Resp BP BP Pulse Ox 02/20/23 08:53 98.7 F 60 20 135/74 98 02/20/23 01:56 98.5 F 58 L 18 129/57 98 02/19/23 21:45 98.3 F 64 16 145/66 98 02/19/23 21:00 65 16 140/67 96 02/19/23 16:50 70 16 156/70 99 02/19/23 16:10 64 16 157/71 99 02/19/23 15:27 98.6 F 65 20 149/91 98 Intake and Output 02/19/23 02/20/23 02/20/23 22:59 06:59 14:59 Other: Voiding Method Toilet Toilet # Voids 2 Weight 77.564 kg Patient is an elderly female, very pleasant, in no acute distress. Patient is alert awake oriented to time place and person. Speech and language functions are normal. Patient can name and repeat very well. No aphasia or dysarthria. Attention, concentration and fund of knowledge is adequate. On cranial nerve examination, pupils are equal, round and reacting to light, visual liu are full on confrontation, with no neglect on double simultaneous stimulation. Extraocular muscles are intact with no nystagmus. Face is symmetric, tongue protrudes to the midline. Palatal elevation and sensation normal, hearing is significantly decreased for finger rubbing, but appears normal for routine conversation. Her shoulder shrug normal, facial sensation normal. On muscle strength testing, there is no pronator drift and the strength is normal in arms and legs distally and proximally. Deep tendon reflexes are symmetric 1+ to 2 all over and plantars downgoing. Sensory to touch is equal with no neglect on double simultaneous stimulation. Cerebellar function showed no ataxia for jecwin-jw-lqod testing. No dysd iadochokinesia. No ataxia for fhsd-rh-[id number] testing on either side. Tone and bulk of muscles normal. Gait deferred.. On general examination, there is no carotid bruit or murmur, S1-S2 audible. Alyssa st is clear on consultation. Abdomen is soft nontender. No organomegaly, bowel sounds present. Peripheral pulses are present. No edema. Results - Laboratory Findings CBC and BMP: 02/19/23 16:04 02/19/23 16:04 Abnormal Lab Findings: Abnormal Labs 02/19/23 16:04 BUN 21 H Glucose 151 H Magnesium 2.5 H Assessment and Plan Assessment: * Probable parasomnia. Patient has long-standing history of hypersomnolence. She sleeps 8 hours at night and takes multiple naps during the day (around 5 naps, each lasting for 1-1/2 to 2-1/2 hours daily). Patient prior to presentation was woken up from deep sleep with vivid dream, perhaps related to disordered arousal. No focal symptoms, therefore doubt TIA. * Excessive napping, sleeping during the day, but without involuntary excessive daytime sleepiness. Exact cause is uncertain. Rule out narcolepsy without cataplexy, rule out idiopathic hypersomnolence, versus medication side effect, or other sleep disorder. * Dizziness, likely due to peripheral vestibular dysfunction. She does have some symptoms of sinus congestion, although CT head showed no evidence of paranasal sinus disease. * Anxiety, depression. * Hypertension * Hyperlipidemia Plan: * Patient had undergone extensive testing which are normal as mentioned below. * MRI of the brain, which is normal. Background mild diffuse age-related cerebral atrophy and [id number] nonspecific white matter changes favored product of chronic small vessel ischemic change inpatient of this age. I personally reviewed MRI, agree with the findings. No acute process. Paranasal sinuses are clear. * CTA of head and neck revealed no significant stenosis in, nor internal carotid arteries bilaterally. No significant stenosis or aneurysm at the level of cheesh-na of [place]. * Lipid panel with cholesterol 165, LDL 82, HDL 32 and triglycerides 250. Lipids are well controlled. * Orthostatics were checked, which are normal. Blood pressure is well controlled. * We will check EEG to rule out any epileptiform activity. * Patient may benefit from outpatient sleep study with MSLT to rule out idiopathic hypersomnolence or narcolepsy or other sleep disorder. She does not have any symptoms of cataplexy. * Patient's dizziness has resolved. Recommend outpatient ENT consultation if the dizziness recurs to rule out peripheral vestibular dysfunction. * Neurologically clear once EEG report is available. * Thank you for the consult. Addendum: EEG was performed, which is normal. No epileptiform activity was seen. Neurologically clear. Time with Patient: Greater than 30
[2023-02-20 14:58] VITALS: BP 116/56; PULSE 55; TEMP 98
[2023-02-20] MEDS ORDERED: MECLIZINE 12.5 MG TAB PO SCH (16:00)
--- NOTE | 2023-02-20 16:58 | P.DS ---
Providers Date of admission: 02/19/23 19:02 Expected date of discharge: 02/20/23 Attending physician: Silvano Morin Consults: 02/19/23 19:00 Consult Physician Routine Consulting Provider: Adelita Mishra Consult Reason/Comments: TIA, dizziness Do you want consulting provider notified?: Yes Primary care physician: [facility] Course: Chief Complaint: Dizzy This is a pleasant 72-year-old patient follows with Dr. Chávez. Chronic stable medical conditions include GERD, hyperlipidemia, psoriasis, hiatal hernia, anxiety depression afternoon patient woke up from a nap in the afternoon. [place] rather dizzy and off-balance. Had some nausea. Patient held onto things and went to the bathroom. Slowly improved. Later again when she tried a walker for the same day. Patient does complain of sinus symptoms. Feels a fullness in the left ear. No change in vision or speech. No numbness or any Percocet or weakness. Computed tomography scan a CT angiogram of the brain in the ER both unremarkable. Feels better though not back to the baseline. Still unsteady. February 20: Patient doing well this morning. No further dizziness. Patient's filter peripheral disease/gastritis. Resolved. MRI of the brain negative. Seen by neurology. Patient does take excessive naps. [place]leer of parasomnia. Labs the patient to follow-up with neurology and ENT. Patient ambulating in the hallway. Past medical history to include: GERD, hyperlipidemia, hiatal hernia, scoliosis, anxiety depression Social history: No smoking or alcohol. . Physical examination: VITAL SIGNS: 98, 55, 16, 116/56, 99% room air GENERAL: Sitting up, comfortable EYES: Pupils equal. Conjunctiva normal. HEENT: External appearance of nose and ears normal, oral cavity grossly normal. NECK: JVD not raised; masses not palpable. HEART: First and second heart sounds are normal; no edema. LUNGS: Respiratory rate normal; clear to auscultation. ABDOMEN: Soft, nontender, liver spleen not palpable, no masses palpable. PSYCH: Alert and oriented x3; mood and affect anxious MUSCULOSKELETAL:No Clubbing/cyanosis;muscles-grossly intact. OA INVESTIGATIONS, reviewed in the clinical context: Fluoroscopy: Possible right hemidiaphragm paralysis. MRI brain: Unremarkable and chronic changes. LDL 82 CT brain without contrast: Unremarkable CT angiogram of the head and neck: Unremarkable White count 7.1 hemoglobin 15.1 platelets 185 sodium 137 potassium 4.6 creatinine 0.66 Troponin I less than 0.012 TSH 1.6 EKG tracing personally reviewed by me-normal sinus rhythm. Chest x-ray film personally reviewed by me-some elevation of right diaphragm Assessment and plan: -Episode of acute dizziness. With some sensation of the ER some symptoms of sinus congestion. Possibly labyrinthitis. Better MRI of the brain negative -Parasomnia: excessive naps in the daytime. 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 sniff test with fluoroscopy was done Disposition: Home Plan - Discharge Summary Discharge Rx Participant: No New Discharge Prescriptions: Continue PARoxetine [Paxil] 10 mg PO DAILY Digoxin [Lanoxin] 250 mcg PO DAILY Nitroglycerin Sl Tabs [Nitrostat] 0.4 mg SUBLINGUAL Q5M PRN #20 tab PRN Reason: Chest Pain Metoprolol Tartrate [Lopressor] 12.5 mg PO BID #60 tab Discharge Medication List Digoxin [Lanoxin] 250 mcg PO DAILY 08/04/16 [History] PARoxetine [Paxil] 10 mg PO DAILY 08/04/16 [History] Metoprolol Tartrate [Lopressor] 12.5 mg PO BID #60 tab 05/23/17 [Rx] Nitroglycerin Sl Tabs [Nitrostat] 0.4 mg SUBLINGUAL Q5M PRN #20 tab 05/23/17 [Rx] Follow up Appointment(s)/Referral(s): Robbie Chávez DO [Primary Care Provider] - 1-2 days Yahir Garcia DO [Doctor of Osteopathic Medicine] - 1 Week Katty Castle MD [Medical Doctor] - 1 Week Patient Instructions/Handouts: Dizziness (ED)
--- NOTE | 2023-02-20 18:05 | EEG ---
ELECTROENCEPHALOGRAM REPORT PREAMBLE: This is a 72-year-old female, who was waken up from sleep with some dreaming and confusion. The patient has frequent hypersomnia. This study is performed to rule out any epileptiform activity. EEG FINDINGS: This is a 21-channel digital EEG recorded with video component, utilizing 10/20 international system with referential and bipolar montages. Background consists of well developed, well regulated moderate voltage activity in 8 hertz alpha. Background is posterior dominant and reactive to eye opening and closing. Photic driving response was not seen. Drowsiness was seen with appearance of bilaterally symmetric theta frequency rhythm. Deeper stages of sleep were not seen. No focal or generalized epileptiform activity was seen. IMPRESSION: This is a normal awake and drowsy EEG. No focal, lateralized, or epileptiform activity was seen. MMODL / IJN: [id number] /
[2023-02-20] MEDS ORDERED: FAMOTIDINE 20 MG TAB PO SCH (21:00)
[2023-02-20] MEDS ORDERED: PARoxetine 10 MG TAB PO SCH (21:00)
== END 2023-02-20 16:52 ==
LOC: EC 15:20 → 6NMEDSUR 19:02
PROVIDERS: ADMIT Hospitalist; ATTEND Hospitalist
DX: R42 Dizziness and giddiness (principal); G47.10 Hypersomnia, unspecified; F41.9 Anxiety disorder, unspecified; E11.9 Type 2 diabetes mellitus without complications; K21.9 Gastro-esophageal reflux disease without esophagitis; F32.A Depression, unspecified; E78.5 Hyperlipidemia, unspecified; I10 Essential (primary) hypertension; Z79.899 Other long term (current) drug therapy
CPT/HCPCS: 96376; 96372 ×2; 96374; 99291; 36415; 95816; 93005; 80061; 80053; 84443; 82550; 80162; 83735; 84484; 85025; 85610; 85730; 76000; 71046; 70496; 70450; 70498; 70553; G0378 ×2; J1650 ×2; Q9967; A9585

== ENCOUNTER → 2023-05-27 | Outpatient (CLI) | payer MEDICARE ==
--- NOTE | 2023-05-27 14:58 | US ---
EXAMINATION TYPE: US thyroid st tissue head/neck DATE OF EXAM: 05/27/2023 COMPARISON: NONE CLINICAL INDICATION: Female, 73 years old with history of E04.2 NONTOXIC MULTINODULAR GOITER; Thy nod ules. GLAND SIZE: Right Lobe: 5.8 x 3.0 x 2.2 cm Overall Parenchyma: heterogenous Left Lobe: 5.4 x 2.1 x 2.0 cm Overall Parenchyma: heterogenous Isthmus Thickness: 0.5 cm NODULES RIGHT: # of nodules measured on right: multiple largest. 1. 1.8 X 1.7 x 1.6 cm, upper lateral, Prior size: no prior TIRADS Score: 3 TIRADS Category 3: Mildly Suspicious Composition: Solid or almost completely solid (2 points). Echogenicity: Hyperechoic or isoechoic (1 point). Shape: Wider than tall (0 points). Margin: Smooth (0 points). Echogenic foci: None or large comet-tail artifacts (0 points) Recommendation: If >2.5cm: FNA; If >1.5cm: Follow up at 1,3,5 years LEFT: # of nodules measured on left: 1 1. 1.7 X 1.3 x 1.5 cm, mid, Prior size: No prior TIRADS Score: 2 TIRADS Category 2: Not Suspicious Composition: Mixed cystic and solid (1 point). Echogenicity: Hyperechoic or isoechoic (1 point). Shape: Wider than tall (0 points). Margin: Smooth (0 points). Echogenic foci: None or large comet-tail artifacts (0 points) Recommendation: No FNA ISTHMUS: # of nodules measured in the isthmus: 1 1. 0.9 X 0.5 x 1.0 cm Prior size: No prior TIRADS Score: 4 TIRADS Category 4: Moderately Suspicious Composition: Solid or almost completely solid (2 points). Echogenicity: Hypoechoic (2 points). Shape: Wider than tall (0 points). Margin: Smooth (0 points). Echogenic foci: None or large comet-tail artifacts (0 points) Recommendation: If >1.5cm: FNA; If >1cm: Follow up at 1,2, 3,5 years Bilateral neck scanned, no evidence of lymphadenopathy. IMPRESSION: Bilateral thyroid nodules that meet criteria for follow-up in one year.
== END | disposition home or self-care (01) ==
LOC: RADUSWWP 13:35
PROVIDERS: ATTEND Family Medicine
DX: E04.2 Nontoxic multinodular goiter (principal)
CPT/HCPCS: 76536

== ENCOUNTER → 2023-08-20 | Outpatient (CLI) | payer MEDICARE ==
--- NOTE | 2023-08-20 14:05 | US ---
EXAMINATION TYPE: US abdomen comp/pelvis limited DATE OF EXAM: 08/20/2023 COMPARISON: NONE CLINICAL INDICATION: Female, 73 years old with history of R10.9 ABD PAIN; lower abdominal pain, sugar cystectomy EXAM MEASUREMENTS: Liver Length: 14.0 cm Gallbladder Wall: Surgically absent CBD: 0.6 cm Spleen: 10.6 cm Right Kidney: 10.4 x 3.6 x 4.4 cm Left Kidney: 11.0 x 4.8 x 4.0 cm Pancreas: slightly heterogeneous Liver: wnl Gallbladder: Surgically absent CBD: wnl Spleen: wnl Right Kidney: hyperechoic area upper/mid = 0.8 x 0.8 x 0.9cm as on prior exams Left Kidney: anechoic area lower pole = 2.1 x 1.0 x 1.4cm as on prior exams Upper IVC: wnl Abd Aorta: calcifications noted Bladder: not fully distended Bilateral Jets Seen no IMPRESSION: 1. Stable bilateral renal findings. 2. No acute ultrasound abdomen abnormalities
== END | disposition home or self-care (01) ==
LOC: RADUSWWP 12:51
PROVIDERS: ATTEND Family Medicine
DX: R10.30 Lower abdominal pain, unspecified (principal); N28.89 Other specified disorders of kidney and ureter
CPT/HCPCS: 76700; 76857

== ENCOUNTER → 2023-08-20 | Outpatient (CLI) | payer MEDICARE ==
[2023-08-20 16:52] LABS: Ionized Calcium 5.2 mg/dL (4.5-5.3)
[2023-08-20 17:20] LABS: T4, Free (Free Thyroxine) 0.94 ng/dL (0.78-2.19)
== END | disposition home or self-care (01) ==
LOC: LABWHC1 13:26
PROVIDERS: ATTEND Otolaryngology
DX: E61.8 Deficiency of other specified nutrient elements (principal); R53.83 Other fatigue; E04.2 Nontoxic multinodular goiter
CPT/HCPCS: 36415; 82330; 84439; 84443; 86376

== ENCOUNTER → 2023-11-21 | Outpatient (CLI) | payer MEDICARE ==
--- NOTE | 2023-11-21 18:05 | US ---
EXAMINATION TYPE: US thyroid st tissue head/neck DATE OF EXAM: 11/21/2023 COMPARISON: 05/27/2023 CLINICAL INDICATION: Female, 73 years old with history of E04.2 NONTOXIC MULTINODULAR GOITER; Patient denies any other signs or symptoms GLAND SIZE: Right Lobe: 5.5 x 2.7 x 2.1 cm Overall Parenchyma: heterogenous Left Lobe: 5.4 x 2.2 x 2.1 cm Overall Parenchyma: heterogenous Isthmus Thickness: 0.5 cm NODULES RIGHT: # of nodules measured on right: 3 1. 1.2 X 0.9 x 0.9 cm, upper lateral, solid or almost completely solid, isoechoic TR 3 nodule, whic h is round, with smooth margins, without echogenic foci. Prior size: Not mentioned on prior 2. 1.9 X 1.5 x 1.9 cm, mid lateral, mixed cystic and solid, isoechoic TR 3 nodule, which is wider t elkins tall, with smooth margins, without echogenic foci. Prior size: 1.8 x 1.7 x 1.6 cm 3. 1.4 X 1.0 x 1.3 cm, lower lateral, mixed cystic and solid, isoechoic TR 3 nodule, which is wider than tall, with smooth margins, without echogenic foci. Prior size: Not mentioned on prior LEFT: # of nodules measured on left: 2 1. 0.7 X 0.8 x 0.9 cm, upper lateral, solid or almost completely solid, hypoechoic TR 4 nodule, whi ch is wider than tall, with smooth margins, with echogenic foci. Prior size: Not seen on prior 2. 1.7 X 1.6 x 1.6 cm, mid medial, cystic or almost completely cystic, isoechoic TR 3 nodule, whic h is circular, with smooth margins, without echogenic foci. Prior size: 1.7 x 1.3 x 1.5 cm ISTHMUS: # of nodules measured in the isthmus: 1 1. 1.2 X 0.7 x 1.3 cm cystic or almost completely cystic, isoechoic TR 4 nodule, which is wider clint n tall, with smooth margins, without echogenic foci. Prior size: 0.9 x 0.5 x 1.0 cm Bilateral neck scanned, no evidence of lymphadenopathy. IMPRESSION: 1. Multinodular goiter. 2. Multiple TR3 nodules are present on both sides. A couple were not mentioned on the prior exam due to glandular heterogeneity and complexity. Largest measures 1.9 cm and nodules are either stable or m inimally larger by a millimeter or two. 3. A 9 mm TR 4 nodule left upper pole may be new. A 1.3 cm TR4 nodule in the isthmus increased from 1 .0 cm, previously. Ongoing follow-up can be performed. 2017 ACR TI-RADS LEVEL: TR-RADS 3 - Mildly Suspicious: Follow if > 1.5 cm, FNA if > 2.5 cm 2017 ACR TI-RADS LEVEL: TR-RADS 4 - Moderately Suspicious: Follow if > 1 cm, FNA if > 1.5 cm *Highest TI-RADS level nodule reported
== END | disposition home or self-care (01) ==
LOC: RADUSWWP 12:30
PROVIDERS: ATTEND Family Medicine
DX: E04.2 Nontoxic multinodular goiter (principal); R22.0 Localized swelling, mass and lump, head
CPT/HCPCS: 76536